=== PATIENT | male | born 1975 | race Caucasian/White ===

== ENCOUNTER 2019-05-03 08:21 | Inpatient (IN) ==
[2019-05-03] MEDS ORDERED: ASPIRIN PO ONE (08:37)
[2019-05-03 08:57] LABS: BASO# 0.07 X1000 (0.0-0.2); BASO% 0.8 % (0.0-0.8); EOS# 0.53 X1000 (0.0-0.7); EOS% 5.8 % (0.0-10.0); HEMATOCRIT 27.4 % (42.0-52.0); IMM GRAN# 0.02 X1000 (0.0-0.04); IMM GRAN% 0.2 % (0.0-0.5); LYMPH# 2.34 X1000 (1.2-3.4); LYMPH% 25.7 % (20.5-51.1); MCH 21.4 PG (27-31); MCHC 29.2 g/dL (33-37); MCV 73.5 FL (81-99); MONO% 13.2 % (1.7-9.3); MPV 9.2 FL (7.4-10.4); NEUT# 4.95 X1000 (1.4-6.5); NEUT% 54.3 % (42.2-75.2); PLT 594 X1000 (130-400); RBC 3.73 XMIL (4.7-6.1); RDW 23.3 % (11.5-14.5); WBC 9.11 X1000 (4.8-10.8)
[2019-05-03 09:03] LABS: INR 1.03
[2019-05-03 09:04] LABS: PTT 33.6 Seconds (22.3-41.8)
[2019-05-03 09:11] LABS: POTASSIUM 4.2 mmol/L (3.5-5.1)
[2019-05-03 09:12] LABS: ALBUMIN 3.3 g/dL (3.5-5.0); CALCIUM 8.2 mg/dL (8.8-10.2); CREATININE 10.8 mg/dL (0.7-1.2); TOTAL BILIRUBIN 0.4 mg/dL (0.20-1.00); TOTAL PROTEIN 6.7 g/dL (6.3-8.3)
[2019-05-03] MEDS ORDERED: DEMEROL IV ONE (10:00)
--- NOTE | 2019-05-03 10:04 | Diag Imaging Result Doc PS360 ---
EXAM: ABDOMEN FLAT/UPRIGHT INDICATION: epigastric pain/post colostomy reversal 2 wks ago TECHNIQUE: 3 views COMPARISON: 10/29/2012 FINDINGS: Multiple metallic clips project over the right lower quadrant and there is chronic soft tissue calcification at the right lower quadrant that is stable. There is nonspecific patchy bowel gas throughout the abdomen. There is no significant distention and there is nothing that would necessarily indicate bowel obstruction. There is a relatively small amount of stool in the colon. There is no evidence of large volume free abdominal gas. IMPRESSION: Nonspecific abdomen as described above. Electronically signed by Domingo Mariscal 05/03/2019 10:01 AM
--- NOTE | 2019-05-03 10:06 | Diag Imaging Result Doc PS360 ---
EXAM: CHEST-2 VIEWS INDICATION: cp TECHNIQUE: 2 views COMPARISON: 04/23/2018 FINDINGS: There has been interval removal of the right Vas-Cath. Inspiration is suboptimal. There is likely minimal atelectasis at the left lung base. The lungs are grossly clear by plain radiograph, otherwise. There is no evidence of significant pleural fluid collection or pneumothorax. The cardiac silhouette appears somewhat prominent but stable. IMPRESSION: Low lung volumes and suggestion of minimal left basilar atelectasis. No definite acute pathology by plain radiograph, otherwise. Electronically signed by Domingo Mariscal 05/03/2019 10:03 AM
--- NOTE | 2019-05-03 11:45 | EKG Report ---
Test Performed on : 05/03/2019 11:03:55 AM Test Reason : repeat Blood Pressure : / mmHG Vent. Rate : 092 BPM Atrial Rate : 092 BPM P-R Int : 148 ms QRS Dur : 092 ms QT Int : 376 ms P-R-T Axes : 046 027 020 degrees QTc Int : 464 ms Normal sinus rhythm. Possible Left atrial enlargement Borderline ECG When compared with ECG of 03-MAY-2019 08:28, (Unconfirmed) No significant change was found Unconfirmed Result
--- NOTE | 2019-05-03 11:47 | EKG Report ---
Test Performed on : 05/03/2019 08:28:40 AM Test Reason : cp Blood Pressure : / mmHG Vent. Rate : 084 BPM Atrial Rate : 084 BPM P-R Int : 146 ms QRS Dur : 090 ms QT Int : 382 ms P-R-T Axes : 058 040 041 degrees QTc Int : 451 ms Normal sinus rhythm. Normal ECG When compared with ECG of 25-AUG-2018 11:10, No significant change was found Unconfirmed Result
--- NOTE | 2019-05-03 12:48 | PROVIDER DOCUMENTATION ---
HPI-Chest Pain - General Chief Complaint: Shortness of Breath Stated Complaint: CHEST PAIN Time Seen by Provider: 05/03/19 08:54 Source: patient, family Allergies/Adverse Reactions: Patient Allergies Allergy/AdvReac Type Severity Reaction Status Date / Time lisinopril [From Prinivil] Allergy Severe extreme Verified 05/03/19 09:00 decrease in BP erythromycin base Allergy Unknown Unknown Verified 05/03/19 09:00 [Erythromycin Base] iron Allergy Unknown Unknown Verified 05/03/19 09:00 Home Medications: Home Medication List Medication Instructions Recorded Confirmed Last Taken Type Prednisone 5 mg PO DAILY 10/29/12 05/03/19 10/30/18 04:00 History ATORVAstatin [Lipitor] 10 mg PO QHS 04/08/18 05/03/19 10/29/18 21:00 History Apixaban [Eliquis] 2.5 mg PO BID 04/08/18 05/03/19 10/28/18 History Calcium Acetate 2 cap PO TID 08/25/18 05/03/19 10/30/18 04:00 History Folic Acid/Vit B Complex and C 1 each PO DAILY 08/25/18 05/03/19 10/30/18 04:00 History [Dialyvite Tablet] Ondansetron HCl [Zofran] 2 tab PO PRN PRN 10/28/18 05/03/19 10/30/18 04:00 History Sertraline [Zoloft] 100 mg PO DAILY 10/28/18 05/03/19 10/29/18 21:00 History Hydrocodone/Acetaminophen [Jenera 1 ea PO Q6H PRN PRN #10 tab 10/30/18 05/03/19 Unknown Rx 7.5-325 Tablet] Oxycodone HCl/Acetaminophen 1 tab PO Q6H PRN 05/03/19 05/03/19 Unknown History [Oxycodone-Acetaminophen 5-325] Propranolol HCl 10 mg PO BID 05/03/19 05/03/19 Unknown History Ropinirole HCl [Requip] 0.5 mg PO HS 05/03/19 05/03/19 Unknown History - History of Present Illness-CP Nature of Presenting Problem: began having chest pain and sob with hx of dvt 3 yrs ago on eliquis 2.5 bid esrd dialysis pt recent colostomy was reduced Location: reports: substernal, epigastric Chest Pain Radiation: reports: arms Quality of Pain: reports: fullness, pressure Severity in ED: moderate Onset/Duration: abrupt, just prior to arrival Timing: still present, getting worse Context/Activities at Onset: reports: none Modifying Factors: improves with: nothing Associated Symptoms: reports: diaphoresis, dizziness, nausea, shortness of breath, weakness Similar Symptoms Previously?: No Recently Seen Here or By Another Healthcare Provider: No Review of Systems - Adult - REVIEW OF SYSTEMS - ADULT Constitutional: reports: no symptoms reported Eyes: reports: no symptoms reported Ears, Nose, Mouth & Throat: reports: no symptoms reported Cardiovascular: reports: chest pain Respiratory: reports: shortness of breath Gastrointestinal: reports: abdominal pain Genitourinary: reports: other Musculoskeletal: reports: no symptoms reported Integumentary: reports: no symptoms reported Neurological: reports: no symptoms reported Psychiatric: reports: no symptoms reported Endocrine: reports: no symptoms reported Hematologic/Lymphatic: reports: no symptoms reported Allergic/Immunologic: reports: no symptoms reported Past History - Adult - PAST MEDICAL HISTORY-ADULT Review of Records: reports: Nursing Assessment Review, Medications Reviewed, Social history reviewed & non-contributory. Major Childhood Illnesses: reports: denies history Cardiovascular: denies: arrhythmia, CAD, CHF, palpitations, pericardial disease Respiratory: reports: denies history Gastrointestinal: reports: other (colostomy reduced) Genitourinary: reports: ESRD, kidney disease Musculoskeletal: reports: denies history Neurological: reports: denies history Psychiatric: reports: denies history Physical Exam-General - PHYSICAL EXAM-ADULT Initial Vital Signs Reviewed: Yes - CONSTITUTIONAL General Appearance: moderate distress - EYES Eyes: PERRL/EOMI, pink conjunctivae - HEAD, EARS, NOSE, MOUTH & THROAT HENMT: normocephalic/atraumatic, moist mucous membranes - NECK Neck: full range of motion, supple - RESPIRATORY Respiratory: lungs clear, normal breath sounds - CARDIOVASCULAR Cardiovascular: regular rate, rhythm - GASTROINTESTINAL (ABDOMEN) Abdominal Exam: normal bowel sounds, soft, guarding - LYMPHATIC Lymphatic: no adenopathy - MUSCULOSKELETAL Back Exam: normal inspection, no CVA tenderness Extremity: normal range of motion, non-tender - SKIN Integumentary: diaphoresis, rash - NEUROLOGIC Neurologic: grossly normal - PSYCHIATRIC Psych/Mental Status: oriented x 3 Progress - PLAN OF CARE/RESULTS Progress/Plan/Lab Results: Vital Signs - 8 hr 05/03/19 08:29 05/03/19 08:30 05/03/19 10:10 Temperature 98 F 97.9 F Pulse Rate 77 89 Respiratory Rate 22 17 Blood Pressure 177/98 168/91 O2 Sat by Pulse Oximetry 100 100 100 Laboratory Results - last 24 hr 05/03/19 05/03/19 05/03/19 08:35 08:35 08:35 WBC 9.11 RBC 3.73 L Hgb 8.0 L Hct 27.4 L MCV 73.5 L MCH 21.4 L MCHC 29.2 L RDW Std Deviation 23.3 H Plt Count 594 H MPV 9.2 Immature Gran % (Auto) 0.2 Neut % (Auto) 54.3 Lymph % (Auto) 25.7 [place] % (Auto) 13.2 H Eos % (Auto) 5.8 Baso % (Auto) 0.8 Immature Gran # (Auto) 0.02 Neut # (Auto) 4.95 Lymph # (Auto) 2.34 [place] # (Auto) 1.20 H Eos # (Auto) 0.53 Baso # (Auto) 0.07 PT INR PTT (Actin FS) D-Dimer, Quantitative 3.40 H Sodium Potassium Chloride Carbon Dioxide Anion Gap BUN Creatinine Estimated GFR/1.73 m2 BUN/Creatinine Ratio Glucose Calculated Osmolality Calcium Total Bilirubin AST ALT Alkaline Phosphatase Creatine Kinase Troponin T Lod-G-Wiotsvxvrwf Pept Total Protein Albumin Globulin Albumin/Globulin Ratio Amylase 496 H Lipase 05/03/19 05/03/19 05/03/19 08:35 08:35 08:35 WBC RBC Hgb Hct MCV MCH MCHC RDW Std Deviation Plt Count MPV Immature Gran % (Auto) Neut % (Auto) Lymph % (Auto) [place] % (Auto) Eos % (Auto) Baso % (Auto) Immature Gran # (Auto) Neut # (Auto) Lymph # (Auto) [place] # (Auto) Eos # (Auto) Baso # (Auto) PT 14.0 INR 1.03 PTT (Actin FS) 33.6 D-Dimer, Quantitative Sodium 138 Potassium 4.2 Chloride 96 L Carbon Dioxide 24 L Anion Gap 18 BUN 44 H Creatinine 10.8 H* Estimated GFR/1.73 m2 5 BUN/Creatinine Ratio 4 Glucose 120 H Calculated Osmolality 288 Calcium 8.2 L Total Bilirubin 0.40 AST 50 H ALT 15 Alkaline Phosphatase 241 H Creatine Kinase 30 Troponin T Vxs-P-C[place]uiermkut Pept 8244 H Total Protein 6.7 Albumin 3.3 L Globulin 3.0 Albumin/Globulin Ratio 1.0 Amylase Lipase 1879 H 05/03/19 05/03/19 05/03/19 08:35 11:00 11:00 WBC RBC Hgb Hct MCV MCH MCHC RDW Std Deviation Plt Count MPV Immature Gran % (Auto) Neut % (Auto) Lymph % (Auto) [place] % (Auto) Eos % (Auto) Baso % (Auto) Immature Gran # (Auto) Neut # (Auto) Lymph # (Auto) [place] # (Auto) Eos # (Auto) Baso # (Auto) PT INR PTT (Actin FS) D-Dimer, Quantitative Sodium Potassium Chloride Carbon Dioxide Anion Gap BUN Creatinine Estimated GFR/1.73 m2 BUN/Creatinine Ratio Glucose Calculated Osmolality Calcium Total Bilirubin AST ALT Alkaline Phosphatase Creatine Kinase 24 Troponin T 0.023 0.026 Ibc-Y-Aojfzeluqwh Pept Total Protein Albumin Globulin Albumin/Globulin Ratio Amylase Lipase Orders Category Date Time Status Cardiac Monitoring DIRECTED Care 05/03/19 08:38 Active Oxygen Therapy- ED Nursing DIRECTED Care 05/03/19 08:38 Active Saline Loc NOW Care 05/03/19 08:38 Active ABDOMEN FLAT/UPRIGHT [RAD] Stat Exams 05/03/19 08:38 Completed CHEST-2 VIEWS [RAD] Stat Exams 05/03/19 08:[address] ANGIOGRM PULMONARY ARTERIES [CT] Stat Exams 05/03/19 11:15 Taken AMYLASE [CHEM] Stat Lab 05/03/19 08:35 Completed CBC WITH ELECTRONIC DIFF [HEME] Stat Lab 05/03/19 08:35 Completed CK PROFILE [SP CHEM] Stat Lab 05/03/19 08:35 Completed CK PROFILE [SP CHEM] Stat Lab 05/03/19 11:00 Completed COMPREHENSIVE METABOLIC PANEL [CHEM] Stat Lab 05/03/19 08:35 Completed D-DIMER [COAG] Stat Lab 05/03/19 08:35 Completed LIPASE [CHEM] Stat Lab 05/03/19 08:35 Completed PRO B-NATRIURETIC PEPTIDE Stat Lab 05/03/19 08:35 Completed PROTIME WITH INR [COAG] Stat Lab 05/03/19 08:35 Completed PTT [COAG] Stat Lab 05/03/19 08:35 Completed TROPONIN T Stat Lab 05/03/19 08:35 Completed TROPONIN T Stat Lab 05/03/19 11:00 Completed Aspirin Med 05/03/19 08:37 Discontinued 325 mg PO NOW ONE Meperidine [Demerol] Med 05/03/19 10:00 Discontinued 25 mg IV NOW ONE CP/SOB/Palp >45 yrs of Age Stat Oth 05/03/19 08:37 Ordered EKG [EKG] Stat Ther 05/03/19 08:38 Draft EKG [EKG] Stat Ther 05/03/19 10:49 Draft Transfer/Admit Order [TRANSFER] Routine Transfer 05/03/19 11:12 Ordered Result Diagrams: 05/03/19 08:35 05/03/19 08:35 - EKG 1 Time of EKG reading by physician:: 08:20 EKG Read and Signed by:: Wilmar Saldana EKG Interpretation (*Must complete 3 of following elements*): Normal Rate: 84 Rhythm: sinus [place]: normal NM Interval: normal ST Wave: normal 2 Time of EKG reading by physician:: 11:00 EKG Read and Signed by:: Wilmar Saldana EKG Interpretation (*Must complete 3 of following elements*): Normal Rate: 92 Rhythm: sinus [place]: normal QRS: normal NM Interval: normal ST Wave: normal Prior EKG Comparison: unchanged from prior - XRAY 1 XRAY Study: Chest Impression: Normal 2 XRAY Study: Abdomen Impression: Normal Departure - Departure Date of Disposition Decision: 05/03/19 DIAGNOSIS: Pancreatitis, Perforated diverticulum Referrals and Follow-Ups: Edmundo Tomlin MD [Primary Care Provider] -
--- NOTE | 2019-05-03 13:11 | Diag Imaging Result Doc PS360 ---
EXAM: CT ANGIOGRM PULMONARY ARTERIES INDICATION: sob chest pain TECHNIQUE: This exam was performed using automated exposure control, adjustment of mA or kV according to patient size, and/or use of iterative reconstruction technique. Thin section axial images and 3-D MIPS were obtained. COMPARISON: 10/23/2017 FINDINGS: There is no evidence of pulmonary embolism. 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 There is no evidence of thoracic aortic aneurysm or dissection. There is no cardiomegaly. There is no evidence of significant mediastinal or hilar lymphadenopathy. There is a small left pleural effusion and there is moderate atelectasis at the left lung base. There is minimal right basilar atelectasis. The lungs are grossly clear, otherwise. There is no pneumothorax. There is a large amount of heterogeneous material in the gallbladder lumen that probably represents sludge. No pericholecystic inflammatory changes are identified. There is a trace amount of fluid around the spleen and liver and tracking into the left paracolic gutter. Note that it is less ascites than on the previous study from 2018. IMPRESSION: 1.Small left pleural effusion with moderate atelectasis at the left lung base and minimal right basilar atelectasis. 2.Large amount of what appears to be heterogeneous sludge in the gallbladder lumen. 3.Trace ascites around the liver and spleen as well as in the left paracolic gutter. 4.No evidence of pulmonary embolism. 5.Other incidental/nonacute findings detailed above. Electronically signed by Domingo Mariscal 05/03/2019 1:08 PM
--- NOTE | 2019-05-03 14:28 | HISTORY AND PHYSICAL ---
PRIMARY CARE PHYSICIAN: Dr. Tomlin. CHIEF COMPLAINT: Chest pain that was substernal, shortness of breath and nausea that began this morning and progressively worsened. HISTORY OF PRESENTING ILLNESS: This is a 43-year-old male who presents to [facility] ER with complaints of substernal chest pain and shortness of breath. States the chest pain was constant with nausea. He is also noted to be an end-stage renal disease patient who has dialysis on Saturday, Saturday, Saturday. He, two weeks ago, had a colostomy reversal done, and he is also noted to be a renal transplant x3 patient. His workup showed a hemoglobin and hematocrit of 8 and 27.4. D-dimer of 3.40. His BUN was 44, with a creatinine of 10.8. He does state his last dialysis was this past Saturday. His cardiac enzymes x2 sets have been negative. ProBNP is 8244, which appears to be around his baseline. On 04/09/2018, it was 8450. His amylase was 496, with a lipase of 1879. Abdomen x-ray showed a nonspecific abdomen. Chest x-ray showed no definite acute pathology by plain radiograph. Did have some minimal left basilar atelectasis. We did do a pulmonary arteriogram that showed a small left pleural effusion, moderate atelectasis in the left lung base, and minimal right basilar atelectasis, a large amount of what appeared to be heterogeneous sludge in the gallbladder lumen, trace ascites around the liver and spleen, no evidence of PE, so he will be admitted to the [facility] for further evaluation and treatment. PAST MEDICAL HISTORY: End-stage renal disease with dialysis on Saturday, Saturday, Saturday, immunosuppression, a right lower extremity DVT, chronic bilateral lower extremity edema, and hypertension. PAST SURGICAL HISTORY: Renal transplant x3, left inguinal and umbilical hernia, bilateral hip replacement, a colostomy placement, and most recently, 2 weeks ago, a colostomy reversal, and has had a testicle removed. FAMILY HISTORY: Reviewed and noncontributory. SOCIAL HISTORY: Currently lives with family. Denies any tobacco, alcohol, or illicit drug use. ALLERGIES: Lisinopril, erythromycin, and iron. HOME MEDICATIONS: Will obtain a current list and restart as appropriate. IMAGING AND LABORATORY DATA: Laboratory data showed a white blood cell count of 9.11, hemoglobin 8, hematocrit 27.4, platelets 594,000. PT and INR of 14 and 1.03, with a D-dimer of 3.40. Sodium of 138, potassium 4.2, chloride 96, CO2 of 24, BUN of 44, creatinine 10.8, glucose 120. Cardiac enzymes x2 sets were negative. ProBNP of 8244. Amylase 496, lipase 1879. Abdomen x-ray showed a nonspecific abdomen. Chest x-ray showed low lung volumes and suggestion of minimal left basilar atelectasis, but no definite acute pathology by plain radiograph otherwise. EKG showed normal sinus rhythm at 84. We did a pulmonary arteriogram that showed a small left pleural effusion with moderate atelectasis at the left lung base, and minimal right basilar atelectasis, a large amount of what appeared to be heterogenous sludge in the gallbladder lumen, trace ascites around the liver and spleen as well as in the left paracolic gutter, and no evidence of a PE. REVIEW OF SYSTEMS: He denied any fever, chills, blurred vision, dizziness. He was positive for chest pain, some shortness of breath. Denied any cough. Was positive for nausea. No abdominal pain was noted. Denied any constipation, diarrhea, or burning or hurting with urination. PHYSICAL EXAMINATION: VITAL SIGNS: On arrival, he had a temperature of 98 degrees, pulse 77, respirations 22, blood pressure 177/98, saturating 100% on room air. GENERAL: This is a 43-year-old male who is lying in the bed, appears pale in color, but answers questions appropriately. HEENT: Normocephalic, atraumatic. Normal ENT inspection. Oropharynx and nares are clear. Eyes: Pupils are equal, round, reactive to light and accommodation. Extraocular movements are intact. NECK: Normal inspection. Normal range of motion. LUNGS: Clear to auscultation bilaterally with equal lung expansion and chest wall movement. HEART: Regular rate and rhythm. No murmurs, rubs, or gallops. ABDOMEN: Soft, nontender, nondistended. Bowel sounds are present x4 quadrants. MUSCULOSKELETAL: He has 5/5 strength x4 extremities. NEUROLOGICAL: Cranial nerves II through XII appear grossly intact. ASSESSMENT: 1. Chest pain. 2. Acute pancreatitis. 3. Elevated D-dimer. Ruled out for pulmonary embolism. 4. End-stage renal disease with hemodialysis on Saturday, Saturday, Saturday. PLAN: He will be transferred to the [facility], placed on telemetry, held n.p.o. Will consult Nephrology. Will consult Cardiology. Will complete his serial cardiac enzymes. Continue home medications as previously identified. O2 per protocol. Recheck a CBC, BMP in the a.m., and further orders after seen by attending and by consultants. Dictated by FRAN Melendez for Adam Serrano MD cc: FRAN Melendez MD Akram Haggag, MD
[2019-05-03] MEDS: DILAUDID IV PRN ×4 (14:40→23:20)
--- NOTE | 2019-05-03 14:58 | HISTORY AND PHYSICAL ---
ADDENDUM: The patient came in with chest pain, diaphoresis, shortness of breath. He is a dialysis patient. He has had a recent colostomy reversal. In any case, his pain is in his chest, but it is also in his epigastrium. He has tenderness apparent. He has evidence of pancreatitis based on his study, based on his amylase and lipase levels. He also has gallstones or at least biliary sludge, so I believe this is actually biliary. This may be gallstone pancreatitis. His EKG did not clearly show any ischemic changes. His troponins are negative. Plan will be to admit him, gentle hydration, n.p.o., surgical consultation, and follow. His EKG looks normal. We will get surgical opinion, and of course Dr. Verdugo to manage his dialysis. He did get CT contrast to rule out PE because he had an elevated D-dimer. Between his renal failure and recent surgery, that is not surprising. We will complete VTE workup with venous Dopplers, and monitor, but I really do think this is just pancreatitis due to gallstone pancreatitis. cc: Adam Serrano MD
[2019-05-03] MEDS ORDERED: DILAUDID IV ONE (17:12)
[2019-05-03] MEDS ORDERED: NS 1,000 ML IV ONE (17:39)
[2019-05-03] MEDS: ZOFRAN IV PRN ×2 (18:14→22:23)
[2019-05-03] MEDS: PHOSLO PO SCH (18:36)
[2019-05-03] MEDS: SODIUM CHLORIDE 0.9% INJ SCH (18:49)
[2019-05-03] MEDS: PROTONIX IV SCH (18:49)
--- NOTE | 2019-05-03 20:07 | GENERAL SURGERY CONSULTATION ---
DATE: 05/03/2019 HISTORY: This is a 43-year-old white male who presented to the emergency department with substernal chest pain, shortness of breath and nausea and bloatedness. He was found to have a high amylase and lipase and he has epigastric discomfort as well. Pulmonary angiogram did not show any pulmonary emboli. Based on what I could see there appeared to be some biliary sludge. PAST MEDICAL HISTORY: 1. End-stage renal disease. He thinks he has had multiple attempts a kidney transplant. 2. He has had a history of a right lower extremity deep venous thrombosis. 3. Hypertension. 4. He has had a previous colostomy by Dr. Ordoñez and recently that was reversed apparently done in [place] by Dr. Irizarry. His bowels have been moving. 5. He has also had an orchiectomy. SOCIAL HISTORY: He lives with his family. He is . Denies tobacco alcohol or illicit drug use. FAMILY HISTORY: Negative for significant heart disease. HOME MEDICATIONS: Include prednisone, Eliquis, Lipitor, vitamins, calcium acetate, Zofran, Zoloft, D[place], propranolol. Requip, oxycodone. ALLERGIES: Lisinopril, erythromycin, iron. REVIEW OF SYSTEMS: Negative in every subsystem, except that noted above. PHYSICAL EXAMINATION: Vital Signs: He is afebrile. Heart rate 75, blood pressure 153/90. He is somewhat somnolent, but does arouse. No cervical adenopathy. Bilateral breath sounds. Heart: Regular rate and rhythm. Abdomen: Soft, but tender especially in the epigastrium. He has a midline wound that is healing. He has left lower quadrant colostomy wound that is healing. Extremities: No peripheral edema. Neurologic: He is somnolent but does answer questions appropriately. Laboratory Data: White count is 9000, hemoglobin 8, hematocrit 27, creatinine 10.8 amylase 496, lipase 1879, alkaline phosphatase 241, total bilirubin 0.4. ASSESSMENT: Possible gallstone pancreatitis. I do agree with ultrasound of the gallbladder to further evaluate it. We will recheck his labs tomorrow. cc: Ney Matute MD
[2019-05-03] MEDS: INDERAL PO SCH (20:16)
[2019-05-03] MEDS: REQUIP PO SCH (20:17)
[2019-05-03] MEDS ORDERED: LIPITOR PO SCH (21:00)
[2019-05-04] MEDS: ZOFRAN IV PRN ×4 (02:04→20:20)
[2019-05-04] MEDS: DILAUDID IV PRN ×5 (02:04→20:20)
[2019-05-04] MEDS ORDERED: NS 2,000 ML MISC PRN (06:15)
[2019-05-04] MEDS ORDERED: TIGHT: 0.2 ML/HR FOR DIALYSIS MISC PRN (06:15)
[2019-05-04] MEDS ORDERED: HEPARIN IV PRN (06:15)
--- NOTE | 2019-05-04 07:52 | Diag Imaging Result Doc PS360 ---
EXAM: US GB < RUQ (LIMITED) HISTORY: elevated liver enzymes TECHNIQUE: Right upper quadrant ultrasound COMPARISON: 02/17/2014 FINDINGS: Normal inferior vena cava. The gallbladder is filled with debris. No definite wall thickening. Normal right kidney. No hydronephrosis. No ascites in the right upper quadrant. The common bile duct measures 5 mm. No focal hepatic normality. No focal pancreatic abnormality although it is heterogeneous and partly obscured. IMPRESSION: Stones and sludge filled gallbladder. Electronically signed by Alvin Sewell 05/04/2019 7:50 AM
[2019-05-04 08:14] LABS: BASO# 0.05 X1000 (0.0-0.2); BASO% 0.3 % (0.0-0.8); EOS# 0.33 X1000 (0.0-0.7); EOS% 1.9 % (0.0-10.0); HEMATOCRIT 28.8 % (42.0-52.0); HEMOGLOBIN 8.4 g/dL (14.0-18.0); IMM GRAN# 0.04 X1000 (0.0-0.04); IMM GRAN% 0.2 % (0.0-0.5); LYMPH# 1.36 X1000 (1.2-3.4); LYMPH% 7.8 % (20.5-51.1); MCH 21.4 PG (27-31); MCHC 29.2 g/dL (33-37); MCV 73.5 FL (81-99); MONO# 1.72 X1000 (0.11-0.59); MONO% 9.8 % (1.7-9.3); MPV 9.7 FL (7.4-10.4); NEUT# 14.04 X1000 (1.4-6.5); PLT 537 X1000 (130-400); RBC 3.92 XMIL (4.7-6.1); RDW 23.4 % (11.5-14.5); WBC 17.54 X1000 (4.8-10.8)
[2019-05-04] MEDS: PHOSLO PO SCH ×3 (08:29→17:14)
[2019-05-04] MEDS: ZOLOFT PO SCH (08:30)
[2019-05-04] MEDS: HEPARIN SUBQ SCH ×2 (08:30→20:06)
[2019-05-04] MEDS: NEPHROCAPS PO SCH (08:30)
[2019-05-04] MEDS: INDERAL PO SCH ×2 (08:30→20:05)
[2019-05-04 08:35] LABS: AMYLASE 1008 U/L (20-200)
[2019-05-04 08:35] LABS: ALB/GLOB RATIO 0.9; CALCIUM 7.8 mg/dL (8.8-10.2); POTASSIUM 4.9 mmol/L (3.5-5.1); TOTAL BILIRUBIN 2.63 mg/dL (0.20-1.00); TOTAL PROTEIN 6.5 g/dL (6.3-8.3)
[2019-05-04 08:37] LABS: CREATININE 11.2 mg/dL (0.7-1.2)
[2019-05-04 08:38] LABS: LIPASE 1613 U/L (13-60)
--- NOTE | 2019-05-04 11:43 | PROGRESS NOTE ---
DATE: 05/04/2019 SUBJECTIVE: This patient is still complaining of abdominal pain, especially at the level of the epigastric, and a little bit right upper quadrant. No signs of peritoneal irritation. He has multiple scars due to previous surgery, and he has had a previous colostomy that was reversed recently, a couple of weeks ago. Abdomen ultrasound showed a gallbladder that is filled with stones and sludge. Surgery Department on board. I will wait for recommendations. Amylase and lipase are elevated, as well as the LFTs, which are worse compared with yesterday. OBJECTIVE: Vital Signs: Temperature 98.8 degrees, pulse 94, respiratory rate 26, blood pressure 102/72, oxygen saturation 98 on room air. HEENT: Head normocephalic. No trauma. PERRLA. Neck: Supple. No JVD. No masses. Central trachea. Chest: Clear to auscultation. Some crepitus at the bases. Abdomen: Soft. It is tender to palpation at the level of the epigastric area and right upper quadrant. Mild soreness, which is generalized. Positive bowel sounds. Multiple scars. No signs of infection on those new scars. Extremities: No clubbing, no cyanosis. Neurological: The patient is alert. He is oriented x3. No focal deficits. LABORATORY DATA: WBC 17.5, hemoglobin 8.4, hematocrit 28.8, platelets 537,000. Sodium 138, potassium 4.9, chloride 99, bicarbonate 20, BUN 59, creatinine 11.2, glucose 97, calcium 7.8. AST 409, ALT 259, alkaline phosphatase 775. Amylase 1008, lipase 1613. ASSESSMENT AND PLAN: 1. Likely gallstone pancreatitis. Ultrasound showed stones and sludge-filled gallbladder. Surgery Department on board. We cannot be aggressive with intravenous fluids because this patient is end-stage renal disease, and actually he is scheduled to get dialysis today. Gastroenterology Department and Surgery Department on board. Continue with pain medication. Since his white blood cell count increased, I will go ahead and put this patient on antibiotics. 2. End-stage renal disease, on hemodialysis Saturday, Saturday, and Saturday. 3. Chest pain. I do not think this is a cardiac-related chest pain, probably is due to the pancreatitis and gallbladder related. Troponins were negative x3 with no electrocardiogram changes. 4. Hypertension. Actually, this patient's blood pressure has been stable. We will just monitor. 5. Elevated D-dimer, negative for pulmonary embolism. Pending lower extremity ultrasound. 6. History of a lower extremity deep venous thrombosis. He has been on Eliquis, which has been stopped due to his current condition. Probably, this patient will go to the operating room. 7. Dyslipidemia. I will stop the atorvastatin due to his increase of liver function tests. 8. Elevated liver function tests. As per #1. cc: Sawyer Dallas MD
--- NOTE | 2019-05-04 16:11 | NEPHROLOGY CONSULTATION ---
DATE: 05/04/2019 REASON FOR ADMISSION: Chest pain substernal with increased work of breathing and associated with nausea nonradiating . REASON FOR CONSULT: To assist with evaluation and treatment. CONSULTING PHYSICIAN: Dr. Maggie Gallego, CHRIS. HISTORY OF PRESENT ILLNESS: Mr. Hdz is a 43-year-old white male who is known to our outpatient services for hemodialysis on Saturday, Saturday, Saturday at the [facility]. Patient is a renal transplant patient with failure secondary to small bowel obstruction approximately 1 year ago. The patient has recently undergone a reverse anastomosis for a colostomy and was recently seen by Dr. Irizarry at [facility] with a drain removal this past Saturday. states that on Saturday he did go to his regular dialysis clinic appointment. He tolerated that well, woke up yesterday morning with severe chest pain worsening over several hours, increased work of breathing. He was brought to the emergency room. EKG was nonspecific. He had an elevated D-dimer which was actually to be expected secondary to having recent surgeries. Cardiac enzymes x2 were negative. His proBNP was 8244 which is close to his baseline. Labs in the emergency room indicated an amylase of 496 with a lipase of 1879. The patient had a CT of the chest with contrast for CT angiogram showing small left pleural effusions, moderate atelectasis to the left lung base, minimal right basilar atelectasis, large amount of heterogenous sludge in the gallbladder lumen, trace ascites around the liver and spleen left pericolic gutter. No evidence of pulmonary embolism, nonacute findings. Followup abdominal ultrasound this a.m. indicate stones and sludge filled gallbladder, is felt upon his admission that patient had acute pancreatitis secondary to cholecystitis. There is a surgical consult for Dr. Matute on the chart. Patient currently states that his chest pain has resolved. There is residual tenderness nonradiating. No nausea or vomiting. No increased swelling. States that he thought he had some fever and chills last week according to his that lasted approximately 1 day. The patient was secondarily admitted to [facility] for further workup and evaluation. His amylase is down to 1008. His lipase is down to 1613 with IV fluids, gentle hydration. PAST MEDICAL HISTORY: Previous renal transplant, he is on immunosuppression therapy secondary to transplant failure, he is on end-stage renal disease with dialysis on Saturday, Saturday, Saturday at the [facility], he has had a right lower extremity DVT, chronic bilateral lower extremity edema, hypertension, anemia of chronic disease and osteodystrophy of chronic disease, previous small bowel obstruction with surgery. PAST SURGICAL HISTORY: Renal transplant x3, left inguinal and umbilical hernia, bilateral hip replacement, colostomy placement with a recent resection and reversal 2 weeks ago, he has had a testicle removed. Currently has dialysis tunneled catheter with a fistula to the left upper arm. FAMILY HISTORY: Negative for kidney disease. SOCIAL HISTORY: Lives with family, has who is attentive to his care. Denies tobacco, alcohol or illicit drug use. ALLERGIES: Listed as lisinopril, erythromycin, iron and meperidine. HOME MEDICATIONS: Prednisone 10 mg, Eliquis, Lipitor, Dialyvite, calcium acetate, Zofran, Zoloft, Horton, propranolol, Requip, oxycodone. REVIEW OF SYSTEMS: Times 10 with pertinent positives listed above in the HPI. His most recent vital signs temperature 99.2 degrees, blood pressure 112/75, heart rate 92, respirations 20, he is on 2 L nasal cannula, last recorded saturation 93%, he has had 700 in, he has had 0 recorded out with need for dialysis. LABS: Sodium 138, potassium 4.9, chloride 99, CO2 20, BUN 59, creatinine 11.2, glucose of 97, anion gap of 19, calcium 7.8, albumin is 3. White count 17.54, hemoglobin 8.4, hematocrit 28.8 with a platelet count of 537,000. Repeat amylase 1008, lipase 1613, his AST is 409, ALT 259 with an alkaline phosphatase of 775. PHYSICAL EXAM: This is a 43-year-old white male he is resting quietly in bed. He appears chronically ill, no acute distress. His skin is warm and dry.HEENT: Normocephalic, atraumatic. Conjunctiva is pale. He has MAGI. Mucous membranes are dry. Neck: Supple, trachea midline. No evidence of JVD. Patient is in the upright position. Cardiovascular: Regular rate and rhythm. No murmur or gallop appreciated. Lungs: Clear to auscultation bilaterally. Equal excursion. He is currently on O2. Abdomen: Slightly distended. Multiple scars. Slight tenderness to midline palpation. Genitourinary: Not inspected, minimal void with dialysis assist. Extremities: Have no edema, no clubbing or cyanosis. Fistula noted to the left upper arm. Neurological: Alert and oriented x3. ASSESSMENT AND PLAN: 1. Chronic kidney disease stage 5D. Patient is due for his routine dialysis treatment today. We will place him on a 2K bath. He is to dialyze for 3-1/2 hours. We will attempt to pull him to his outpatient dry weight. 2. Electrolytes and acid-base balance with correction on dialysis. 3. Anemia, this remains low but stable. 4. Acute pancreatitis secondary to cholecystitis. Primary team has consulted Dr. Matute for further monitoring, evaluation. 5. Chest pain secondary to acute pancreatitis and cholecystitis followed by the primary care. Patient is small allergy to meperidine, now to resume Horton to be followed by the primary care. Like to thank you for allowing us to follow with this patient. Dictated by FRAN Workman for Ray Verdugo MD Face to face encounter, data reviewed, discussed with Herbert Bowen on 05/05/19. I agree with the above assessment and plan of care. cc: FRAN Workman MD [facility]
[2019-05-04] MEDS: PROTONIX IV SCH (18:08)
[2019-05-04] MEDS: REQUIP PO SCH (20:05)
--- NOTE | 2019-05-04 22:55 | GENERAL SURGERY PROGRESS NOTE ---
DATE: 05/04/2019 He says he feels a little bit better. He is afebrile. Heart rate is 94, blood pressure 102/72. Looks like he was -700 in his intake and output. White count has come up to 17,500. Total bilirubin is up to 2.6, AST up to 409, ALT up to 259, alkaline phosphatase up to 775. Amylase up to a 1008. Lipase is down to 1613. His ultrasound did show biliary sludge. His common duct is not dilated. ASSESSMENT: Probable gallstone pancreatitis. He probably will come to laparoscopic cholecystectomy, but first his pancreas needs to respond and improve. He will certainly third space and require some IV fluids. I will allow him to have liquids by mouth for now. We will recheck his labs tomorrow. I agree with the antibiotic coverage. cc: Ney Matute MD [facility]
[2019-05-05] MEDS: DILAUDID IV PRN ×5 (04:54→23:38)
[2019-05-05] MEDS: ZOFRAN IV PRN ×5 (04:54→23:38)
[2019-05-05 06:25] LABS: ALB/GLOB RATIO 0.7; ALBUMIN 2.5 g/dL (3.5-5.0); CALCIUM 7.8 mg/dL (8.8-10.2); POTASSIUM 4.2 mmol/L (3.5-5.1); TOTAL BILIRUBIN 3.03 mg/dL (0.20-1.00); TOTAL PROTEIN 5.9 g/dL (6.3-8.3)
[2019-05-05 06:28] LABS: CREATININE 7.2 mg/dL (0.7-1.2)
[2019-05-05 06:45] LABS: BASO# 0.03 X1000 (0.0-0.2); BASO% 0.4 % (0.0-0.8); EOS# 0.55 X1000 (0.0-0.7); EOS% 7.9 % (0.0-10.0); HEMATOCRIT 23.1 % (42.0-52.0); HEMOGLOBIN 6.8 g/dL (14.0-18.0); LYMPH# 0.81 X1000 (1.2-3.4); LYMPH% 11.7 % (20.5-51.1); MCH 21.3 PG (27-31); MCHC 29.4 g/dL (33-37); MCV 72.4 FL (81-99); MONO# 0.86 X1000 (0.11-0.59); MONO% 12.4 % (1.7-9.3); MPV 10.1 FL (7.4-10.4); NEUT# 4.68 X1000 (1.4-6.5); NEUT% 67.6 % (42.2-75.2); PLT 356 X1000 (130-400); RBC 3.19 XMIL (4.7-6.1); RDW 23.3 % (11.5-14.5); WBC 6.93 X1000 (4.8-10.8)
[2019-05-05] MEDS ORDERED: NS 500 ML IV ONE (08:01)
[2019-05-05 08:08] LABS: AMYLASE 346 U/L (20-200); LIPASE 150 U/L (13-60)
[2019-05-05] MEDS: ZOLOFT PO SCH (08:11)
[2019-05-05] MEDS: PHOSLO PO SCH ×3 (08:11→17:37)
[2019-05-05] MEDS: PERCOCET-5 PO PRN ×2 (08:12→20:22)
[2019-05-05] MEDS: ZOSYN 2.25 GM in NS 50 ML IV SCH ×2 (08:13→20:03)
[2019-05-05] MEDS: NEPHROCAPS PO SCH (08:13)
[2019-05-05] MEDS: HEPARIN SUBQ SCH ×2 (08:13→20:08)
[2019-05-05] MEDS: INDERAL PO SCH ×2 (08:14→21:13)
--- NOTE | 2019-05-05 09:33 | PROGRESS NOTE ---
DATE: 05/05/2019 SUBJECTIVE: This patient is lying comfortably in bed. He is not complaining of chest pain but he is having some abdominal discomfort mostly at the level of epigastric area. He has nausea when he tries to drink some fluids. His hemoglobin dropped to 6.8. I will give him a unit of blood, also I have started this patient on antibiotics. OBJECTIVE: Vital Signs: Temperature 97.9, pulse 94, respiratory rate 17, blood pressure 113/65, oxygen saturation 98 on room air. HEENT: Head normocephalic. No trauma. PERRLA. Neck: Supple. No JVD. No masses. Central trachea. Chest: Clear to auscultation. No wheezing or rales. Abdomen: Soft, tenderness to palpation at the level of the epigastric area and right upper quadrant, mild soreness which is generalized. Positive bowel sounds. Multiple scars. No signs of infection on those scars. Extremities: No edema, no clubbing, no cyanosis. Neurological: The patient is alert. He is oriented x3. No focal deficits. LABORATORY: WBC 6.9, hemoglobin 6.8, hematocrit 23.1, platelet 356. Sodium 142, potassium 4.2, chloride 99, bicarbonate 25, BUN 33, creatinine 7.2, glucose 84, calcium 7.8, AST 290, ALT 162, alkaline phosphatase 723, bilirubin 3. ASSESSMENT AND PLAN: 1. Likely gallstone pancreatitis, ultrasound showed stones and sludge-filled gallbladder, Surgery Department on board. They are planning to do a laparoscopic cholecystectomy but we are treating at this moment the pancreatitis. Pending lipase and amylase, at this moment his pain is better compared with admission. Will continue with same management. 2. Anemia, I will transfuse this patient. Hemoglobin today is 6.8. 3. End-stage renal disease, on hemodialysis Saturday, Saturday, and Saturday. 4. Chest pain, resolved. I do not think it was cardiac related, probably this is due to pancreatitis and gallbladder related. 5. Hypertension. Actually, his blood pressure has been stable. 6. Elevated D-dimer. Negative for pulmonary embolism. No signs of deep venous thrombosis. 7. History of lower extremity deep venous thrombosis. He has been on Eliquis, which has been stopped due to his current condition. Probably he will go to the operating room in the near future. 8. Dyslipidemia. Atorvastatin has been stopped due to his elevated liver function tests. 9. Elevated liver function tests, as per number 1, likely due to gallstone pancreatitis. cc: Sawyer Dallas MD
[2019-05-05] MEDS: PROTONIX IV SCH (17:36)
[2019-05-05] MEDS: SODIUM CHLORIDE 0.9% INJ SCH (17:36)
--- NOTE | 2019-05-05 18:52 | NEPHROLOGY PROGRESS NOTE ---
DATE: 05/05/2019 DATE SEEN: 05/05/2019 TIME SEEN: 8:30 SUBJECTIVE: Mr. Hdz is resting in bed. Head of the bed is elevated. He has complaints of severe nausea. His is attempting to soothe him by rubbing his feet. OBJECTIVE: His most recent vital signs: Temperature 97.9 degrees, blood pressure 113/65, heart rate 94, respirations 17. He is on room air last recorded saturation 98%. He has had 782 and he has had 1400 off with dialysis yesterday. LABORATORY DATA: Sodium 142, potassium 4.2, chloride 99, CO2 25, BUN 33, creatinine 7.2, glucose 84. His anion gap is 18, calcium 7.8, albumin 2.5. White count 6.93, hemoglobin 6.8, hematocrit 23.1 with a platelet count of 356,000. The patient has amylase of 346 with a lipase of 150. PHYSICAL EXAMINATION: General: This is a 43-year-old white male. He is currently resting quietly in bed. Appears chronically ill. Mild distress secondary to nausea. Skin: Warm and dry. HEENT: Normocephalic. Atraumatic. Conjunctiva is pale. He has MAGI. Mucous membranes are dry. Neck: Supple. Trachea midline. No evidence of JVD. Cardiovascular: Regular rate and rhythm. No murmur or gallop appreciated. Lungs: Clear to auscultation bilaterally. Equal excursion. He is currently on room air. Abdomen: Tender to palpation. Hypo bowel sounds noted. Genitourinary: Not inspected. Minimal void with dialysis assist. Extremities: No edema. No clubbing or cyanosis. Fistula to the left upper arm is intact. Neurological: Alert and oriented x3. ASSESSMENT AND PLAN: 1. Chronic kidney disease stage 5D. Patient is due for his routine dialysis treatment in the a.m. No indications for intervention today. 2. Electrolytes and acid-base balance with correction on dialysis. 3. Anemia. Patient's hemoglobin has dropped from 8.8 to 6.8 this a.m. He has 1 unit of packed red blood cells ordered for this morning. We will re-evaluate his labs in the a.m. for indications of further transfusion secondary to patient needing to be a transplant patient free of minimal antigens. 4. Acute pancreatitis secondary to cholecystitis. This is followed with Dr. Matute and the primary care team. The patient remains on liquids only. I would like to thank you for allowing us to follow with this patient. Dictated by FRAN Workman for Ray Verdugo MD Face to face encounter, data reviewed, discussed with Herbert Bowen on 05/05/19. I agree with the above assessment and plan of care. cc: FRAN Workman MD [facility]
[2019-05-05] MEDS: REQUIP PO SCH (20:11)
--- NOTE | 2019-05-05 22:53 | GENERAL SURGERY PROGRESS NOTE ---
DATE: 05/05/2019 SUBJECTIVE: He has less pain, but he is still nauseated. His total bilirubin is up to 3.0. AST has started to come down. ALT started to come down and perhaps his alkaline phosphatase as well. Amylase and lipase are down significantly. DIAGNOSTIC STUDIES: White count is down to 6900. PLAN: Consider him for surgery on the . We will check his labs again tomorrow. Discussed with him the possibility that he would require an open procedure instead of laparoscopic depending on the amount of adhesions. He understands. cc: Ney Matute MD
[2019-05-06] MEDS: DILAUDID IV PRN ×4 (05:31→21:09)
[2019-05-06] MEDS: ZOFRAN IV PRN ×4 (05:36→21:09)
[2019-05-06 05:56] LABS: AMYLASE 161 U/L (20-200); LIPASE 85 U/L (13-60)
[2019-05-06 06:02] LABS: ALB/GLOB RATIO 0.6; ALBUMIN 2.4 g/dL (3.5-5.0); CALCIUM 7.9 mg/dL (8.8-10.2); POTASSIUM 4.3 mmol/L (3.5-5.1); TOTAL BILIRUBIN 1.87 mg/dL (0.20-1.00); TOTAL PROTEIN 6.1 g/dL (6.3-8.3)
[2019-05-06 06:20] LABS: BASO# 0.05 X1000 (0.0-0.2); BASO% 0.8 % (0.0-0.8); EOS# 0.82 X1000 (0.0-0.7); EOS% 13.8 % (0.0-10.0); HEMATOCRIT 24.3 % (42.0-52.0); HEMOGLOBIN 7.3 g/dL (14.0-18.0); LYMPH# 0.71 X1000 (1.2-3.4); MCH 22.1 PG (27-31); MCV 73.6 FL (81-99); MONO# 0.57 X1000 (0.11-0.59); MONO% 9.6 % (1.7-9.3); MPV 9.8 FL (7.4-10.4); NEUT# 3.79 X1000 (1.4-6.5); NEUT% 63.8 % (42.2-75.2); PLT 331 X1000 (130-400); RDW 22.9 % (11.5-14.5); WBC 5.94 X1000 (4.8-10.8)
[2019-05-06] MEDS ORDERED: HEPARIN IV PRN (06:24)
[2019-05-06] MEDS ORDERED: TIGHT: 0.2 ML/HR FOR DIALYSIS MISC PRN (06:24)
[2019-05-06] MEDS ORDERED: NS 2,000 ML MISC PRN (06:24)
[2019-05-06 06:31] LABS: CREATININE 9.2 mg/dL (0.7-1.2)
--- NOTE | 2019-05-06 08:55 | PROGRESS NOTE ---
DATE: 05/06/2019 SUBJECTIVE: This patient is getting dialysis at this moment. His hemoglobin dropped yesterday from 8.4 to 6.8, and he received 1 unit of PRBC. Today the hemoglobin is 7.3. LFTs are trending down, as well as the amylase and lipase. We will continue to monitor. Hopefully, this patient will have a cholecystectomy done in the near future, hopefully tomorrow. OBJECTIVE: Vital Signs: Temperature 98.2 degrees, pulse 77, respiratory rate 16, blood pressure 111/68, oxygen saturation 97% on room air. HEENT: Head normocephalic, no trauma. PERRLA. Neck: Supple. No JVD. No masses. Central trachea. Chest: Clear to auscultation. No wheezing. No rales. Abdomen: Soft. Tenderness to palpation at the level of the epigastric area and right upper quadrant. Mild soreness which is generalized. Positive bowel sounds. Multiple scars. No signs of infection on those scars. Extremities: No edema, no clubbing, no cyanosis. Neurological examination: The patient is alert. He is oriented x3. No focal deficits. LABORATORY: WBC 5.9, hemoglobin 7.3, hematocrit 24.3, platelet 331. Sodium 137, potassium 4.3, chloride 95, bicarbonate 20. BUN 47, creatinine 9.2, glucose 53, calcium 7.9. AST 96, ALT 114, alkaline phosphatase 693, amylase 161, lipase 85. ASSESSMENT AND PLAN: 1. Likely gallstone pancreatitis. Ultrasound showed stone and sludge-filled gallbladder. Surgery Department on board. Probably he will have a cholecystectomy done tomorrow. Liver function tests are trending down, as well as the pancreatic enzymes. He feels a bit better compared with admission, but he is still having abdominal pain. 2. Anemia, status post 1 packed red blood cell. I will monitor for now. Hemoglobin 7.3. 3. End-stage renal disease. He is on hemodialysis at this moment. We will continue to monitor. 4. Chest pain, resolved. 5. Hypertension, stable. 6. Elevated D-dimer, negative for pulmonary embolus. 7. History of lower extremity deep vein thrombosis. He has been on Eliquis which has been stopped during this current hospitalization. Probably, he will go to the operating room tomorrow. 8. Dyslipidemia. Atorvastatin has been stopped due to his elevated liver function tests. 9. Elevated liver function tests, likely due to gallstone pancreatitis. We will avoid hepatotoxic medications. cc: Sawyer Dallas MD
[2019-05-06] MEDS: NEPHROCAPS PO SCH (12:04)
[2019-05-06] MEDS: INDERAL PO SCH ×2 (12:05→21:10)
[2019-05-06] MEDS: ZOLOFT PO SCH (12:05)
[2019-05-06] MEDS: ZOSYN 2.25 GM in NS 50 ML IV SCH ×2 (12:06→21:09)
[2019-05-06] MEDS: HEPARIN SUBQ SCH ×2 (12:06→21:09)
[2019-05-06] MEDS: PHOSLO PO SCH ×3 (12:06→16:45)
--- NOTE | 2019-05-06 12:37 | GENERAL SURGERY PROGRESS NOTE ---
DATE: 05/06/2019 He is feeling better today. His numbers are improved with his total bilirubin down to 1.87. AST down to 96. ALT down to 114. Alkaline phosphatase down to 693. Amylase done to 161 and lipase down to 85. In view of his progress and improvement, I think we can go ahead and schedule him for a laparoscopic cholecystectomy for 05/07 with the possibility that we would have to do it open due to his previous surgery. He understands this. cc: Ney Matute MD
--- NOTE | 2019-05-06 14:09 | NEPHROLOGY PROGRESS NOTE ---
DATE: 05/06/2019 TIME SEEN: 0735. SUBJECTIVE: Mr. Hdz is preparing to start hemodialysis. He states that his nausea waxes and wanes. He is feeling okay today. OBJECTIVE: Vital Signs: Temperature is 98.2 degrees blood pressure 111/68, heart rate 77, respirations 16. He is on room air. Last recorded saturation 97%. He has had 240 in. He has had 0 recorded out. Labs: His sodium is 137, potassium 4.3, chloride is 95, CO2 is 20, BUN 47, creatinine is 9.2, glucose is 53, anion gap 22, calcium 7.9, albumin 2.4. White count 5.94, hemoglobin 7.3, hematocrit 24.3, with a platelet count of 331,000. Physical Examination: General: This is a 43-year-old, white male. He is resting quietly in bed. He is preparing to start hemodialysis. He appears chronically ill. No acute distress. Skin is warm and dry. HEENT: Normocephalic, atraumatic. Conjunctivae are pale. He has MAGI. Mucous membranes are dry. Neck: Supple. Trachea midline. No evidence of JVD. Cardiovascular: Regular rate and rhythm. No murmur or gallop appreciated. Lungs: Clear to auscultation bilaterally. Equal excursion, on room air. Abdomen: Soft. Slight tenderness on palpation. Hypoactive bowel sounds. Genitourinary: Not inspected. Minimal void with dialysis assist. Extremities: No edema. No clubbing or cyanosis. Fistula to the left upper arm is intact with good thrill. Neurological: Alert and oriented x3. ASSESSMENT AND PLAN: 1. Chronic kidney disease stage 5D. The patient is due for his routine dialysis treatment today. No indications for further intervention. He is to be placed on a 2 K bath. We will dialyze him for 3.5 hours. We will attempt to pull to outpatient dry weight. 2. Electrolytes and acid-base balance, with correction on dialysis. 3. Anemia. This does remain low at 7.3 after 1 unit of transfusion yesterday. No further indications for intervention. We will continue to monitor. 4. Acute pancreatitis secondary to cholecystitis. Dr. Matute has indicated plans for a possible laparoscopic cholecystectomy or open visual repair for his cholecystitis on the . I would like to thank you for allowing us to follow with this patient. Dictated by FRAN Workman for Ray Verdugo MD Face to face encounter, data reviewed, discussed with Herbert Bowen on 05/06/19. I agree with the above assessment and plan of care. cc: FRAN Workman MD [facility]
[2019-05-06] MEDS: PROTONIX IV SCH (16:45)
[2019-05-06] MEDS: SODIUM CHLORIDE 0.9% INJ SCH (16:45)
--- NOTE | 2019-05-06 19:03 | Extremity Venous Study ---
PROCEDURE NAME: Venous U/S Bilateral Legs - 05/04/2019 PROCEDURE: Bilateral lower extremity venous duplex, and color flow imaging study using the [employer] vivid E9 ultrasound System with a 9L-D transducer. REFERRING PHYSICIANS: Adam Serrano MD AGE: A 43-year-old male. STEEL WELDER: Yokasta Alexander RVT. INDICATIONS: Shortness of breath, history of deep venous thrombosis. FINDINGS: The right common femoral vein and its branches, deep and superficial femoral veins were satisfactorily imaged. They had flow through them and were compressible. Right popliteal vein and the deep veins for the right knee were all compressible and had flow through them. The superficial veins of the right lower extremity were compressible throughout their length. There was evidence of chronic changes involving the right popliteal vein with thickened vein clemens, but there was flow through this area of the deep venous system. The left common femoral vein and its branches, deep and superficial femoral veins were also satisfactorily imaged. They had flow through them and were compressible. Left popliteal vein and the deep veins for the left knee were all compressible and had flow through them. The superficial veins of the left lower extremity were compressible throughout their length. INTERPRETATION: Chronic inflammatory changes of the popliteal vein but there is flow through this vein. There was no evidence of acute deep or superficial venous thrombosis of the bilateral lower extremities. cc: MD Adam Hunter MD
[2019-05-06] MEDS: REQUIP PO SCH (21:10)
[2019-05-06] MEDS: PERCOCET-5 PO PRN (22:21)
[2019-05-07] MEDS: DILAUDID IV PRN ×5 (01:13→22:52)
[2019-05-07] MEDS: ZOFRAN IV PRN ×5 (01:15→22:52)
[2019-05-07 05:25] LABS: BASO# 0.07 X1000 (0.0-0.2); BASO% 1.3 % (0.0-0.8); EOS# 0.85 X1000 (0.0-0.7); EOS% 16.2 % (0.0-10.0); HEMOGLOBIN 8.1 g/dL (14.0-18.0); LYMPH# 0.72 X1000 (1.2-3.4); LYMPH% 13.7 % (20.5-51.1); MCH 22.3 PG (27-31); MCV 74.2 FL (81-99); MONO% 11.4 % (1.7-9.3); MPV 10.1 FL (7.4-10.4); NEUT# 3.02 X1000 (1.4-6.5); NEUT% 57.4 % (42.2-75.2); PLT 383 X1000 (130-400); RBC 3.64 XMIL (4.7-6.1); RDW 22.4 % (11.5-14.5); WBC 5.26 X1000 (4.8-10.8)
[2019-05-07 05:56] LABS: ALB/GLOB RATIO 0.8; POTASSIUM 3.9 mmol/L (3.5-5.1); TOTAL BILIRUBIN 1.37 mg/dL (0.20-1.00); TOTAL PROTEIN 6.8 g/dL (6.3-8.3)
[2019-05-07 06:09] LABS: CREATININE 6.7 mg/dL (0.7-1.2)
[2019-05-07] MEDS: HEPARIN SUBQ SCH (09:33)
[2019-05-07] MEDS: PHOSLO PO SCH ×3 (09:39→16:59)
[2019-05-07] MEDS: ZOLOFT PO SCH (09:40)
[2019-05-07] MEDS: NEPHROCAPS PO SCH (09:40)
[2019-05-07] MEDS: INDERAL PO SCH ×2 (09:40→20:27)
[2019-05-07] MEDS: ZOSYN 2.25 GM in NS 50 ML IV SCH ×2 (09:40→20:28)
--- NOTE | 2019-05-07 09:40 | PROGRESS NOTE ---
DATE: 05/07/2019 SUBJECTIVE: This patient is resting comfortably in bed. No acute events overnight. Vital signs are stable. He is still complaining of abdominal pain. Hemoglobin went up from 7.3 to 8.1. AST and ALT better compared with yesterday. Alkaline phosphatase a little bit more elevated compared with yesterday. OBJECTIVE: Vital Signs: Temperature 98.1 degrees, pulse 65, respiratory rate 23, blood pressure 109/64, oxygen saturation 96 on room air. HEENT: Head normocephalic. No trauma. PERRLA. Neck: Supple. No JVD. No masses. Central trachea. Chest: Clear to auscultation. No wheezing. No rales. Abdomen: Soft. Tenderness to palpation at the level of the epigastric area and right upper quadrant. Multiple scars. No signs of infection. Extremities: No edema, no clubbing, no cyanosis. Neurological: This patient is sleepy, but arousable. No changes. LABORATORY DATA: WBC 5.2, hemoglobin 8.1, hematocrit 27, platelets 383,000. Sodium 136, potassium 3.9, chloride 95, bicarbonate 22, BUN 26, creatinine 6.7, glucose 60, calcium 8. AST 68, ALT 92, alkaline phosphatase 179, albumin 3. ASSESSMENT AND PLAN: 1. Likely gallstone pancreatitis. Ultrasound showed stone and sludge-filled gallbladder. Surgery Department on board. Probably, he will have a cholecystectomy done today. I discussed the case with the , who is at the bedside. 2. Anemia, status post 1 packed red blood cells. Hemoglobin improved to 8.1. 3. End-stage renal disease. He had hemodialysis yesterday. Will continue to monitor. 4. Chest pain, resolved. 5. Hypertension, stable. 6. Elevated D-dimer. Negative for pulmonary embolism. 7. History of lower extremity deep venous thrombosis. He has been on Eliquis, which has been stopped during this hospitalization due to the possibility of surgery today. 8. Dyslipidemia. Atorvastatin has been stopped due to his elevated liver function tests. 9. Elevated liver function tests, likely due to gallstone pancreatitis. I will avoid nephrotoxic medications. cc: Sawyer Dallas MD
[2019-05-07] MEDS ORDERED: DIPRIVAN 1% ONE (12:26)
[2019-05-07] MEDS ORDERED: XYLOCAINE-MPF 2% ONE (12:27)
[2019-05-07] MEDS ORDERED: SODIUM CHLORIDE 0.9% 10 ML ONE (12:29)
[2019-05-07] MEDS ORDERED: NORCURON ONE (12:29)
[2019-05-07] MEDS ORDERED: QUELICIN (DOSE) ONE (12:29)
[2019-05-07] MEDS ORDERED: FENTANYL ONE (12:32)
[2019-05-07] MEDS ORDERED: SENSORCAINE 0.25%/EPI 1:200,000 ONE (13:38)
[2019-05-07] MEDS ORDERED: SODIUM CHLORIDE 0.9% ONE (13:39)
[2019-05-07] MEDS ORDERED: LR 1,000 ML ONE (13:39)
[2019-05-07] MEDS ORDERED: ZOFRAN ONE (13:39)
[2019-05-07] MEDS ORDERED: NIMBEX ONE (13:42)
[2019-05-07] MEDS ORDERED: DECADRON ONE (14:44)
[2019-05-07] MEDS ORDERED: EPHEDRINE ONE (14:49)
[2019-05-07] MEDS ORDERED: 1/2 NS 1,000 ML ONE (15:31)
[2019-05-07] MEDS: DILAUDID ONE ×3 (15:37→16:58)
--- NOTE | 2019-05-07 17:09 | Diag Imaging Result Doc PS360 ---
EXAM: OPERATIVE CHOLANGIOGRAM INDICATION: GALLBLADDER DX TECHNIQUE: COMPARISON: None. FINDINGS: Three spot fluoroscopic images were provided of the opacified common bile duct, which were performed during cholecystectomy by Dr. Ney Matute. The common bile duct appears grossly normal in caliber with no discrete filling defect or stricture identified. Contrast is seen flowing normally into the small bowel. IMPRESSION: As above. Please correlate with live fluoroscopic imaging. Electronically signed by Domingo Mariscal 05/07/2019 5:07 PM
[2019-05-07] MEDS: SODIUM CHLORIDE 0.9% INJ SCH (17:14)
[2019-05-07] MEDS: PROTONIX IV SCH (17:15)
[2019-05-07] MEDS: REQUIP PO SCH (20:26)
[2019-05-07] MEDS: PERCOCET-5 PO PRN (20:27)
--- NOTE | 2019-05-07 21:03 | NEPHROLOGY PROGRESS NOTE ---
DATE: 05/07/2019 SUBJECTIVE: Mr. Hdz is resting quietly in bed. His is at his bedside. Patient is currently NPO for possible surgery today per Dr. Matute. OBJECTIVE: Vital Signs: Temperature 98.8 degrees, blood pressure 131/75, heart rate 69, respirations 18. He is on room air. Last recorded saturation 96%. He has had 290 in and 1 L removed on dialysis yesterday. LABORATORY DATA: Sodium 136, potassium 3.9, chloride 95, CO2 22, BUN 26, creatinine 6.7, glucose is 60, anion gap of 19, calcium 8, albumin 3. White count 5.26, hemoglobin 8.1, hematocrit 27, platelet count 383,000 PHYSICAL EXAMINATION: General: This is a 43-year-old white male who is currently resting in bed. He is in mild distress secondary to abdominal discomfort. Skin: Warm and dry. HEENT: Normocephalic, atraumatic. Conjunctivae pale. He has MAGI. Mucous membranes are dry. Neck: Supple. Trachea midline. No evidence of JVD in the upright position. Cardiovascular: Regular rate and rhythm. The patient has no murmur or gallop appreciated. Lungs: Clear to auscultation anteriorly. Equal excursion. He remains on room air. Abdomen: Tender on palpation. Hypoactive bowel sounds. Genitourinary: Not inspected. Minimal void with dialysis assist. Extremities: With no edema. No clubbing or cyanosis. Neurological: Alert and oriented x3. ASSESSMENT AND PLAN: 1. Chronic kidney disease stage 5D. The patient is due for his routine dialysis treatment in the a.m.. He tolerated his dialysis treatment yesterday well. 2. Electrolytes and acid-base balance. These are acceptable. 3. Anemia. This remains low, but stable after transfusion of 1 unit of packed red blood cells. 4. Acute pancreatitis secondary to cholecystitis. This is followed by Dr. Matute with plans for possible abdominal surgery today. The patient is currently NPO. I would like to thank you for allowing us to follow with this patient. Dictated by FRAN Workman for Ray Verdugo MD [id number] encounter, data reviewed, discussed with Rena Bowen on 05/07/19. I agree with the above assessment and plan of care. cc: FRAN Workman Gladish, MD [facility]
--- NOTE | 2019-05-07 22:08 | GENERAL SURGERY PROGRESS NOTE ---
DATE: 05/07/2019 PROCEDURE: Laparoscopic cholecystectomy with operative cholangiogram. SURGEON: Ney Matute MD [employer]ER: ALBIN Solano PREOPERATIVE DIAGNOSES: 1. Gallstone pancreatitis. 2. Chronic calculous cholecystitis. 3. Chronic kidney disease stage 5. POSTOPERATIVE DIAGNOSES: 1. Gallstone pancreatitis. 2. Chronic calculous cholecystitis. 3. Chronic kidney disease stage 5. FINDINGS: Normal size common duct. There was free flow in the duodenum. No intraluminal filling defects were seen. DESCRIPTION OF PROCEDURE: Satisfactory general endotracheal anesthesia was achieved. The abdomen was prepped and draped in sterile fashion. The patient has had previous laparotomies and had a recent laparoscopic colostomy takedown. We began on the left upper quadrant because there was no incision there. We anesthetized the skin and made a transverse incision. We used an 11 trocar in Optiview technique to enter the abdominal cavity. We insufflated through this trocar. There was a window into the right upper quadrant, so under direct visualization I used a 5 trocar midclavicular line and a 5 trocar in the anterior axillary line. We then switched to a 5 camera and went through our anterior axillary line trocar. We then swept some of the adhesions down to the midline so that we could introduce an 11 trocar just above the umbilicus under direct visualization, and switched our camera to that trocar. We did that safely. We then switched to a 10 flexible-tip camera and went through the supraumbilical trocar site. We then placed the patient in reverse Trendelenburg and turned him to the left. The gallbladder was distended. We stuck an aspirating needle into the gallbladder and attempted to decompress it, but it had such thick bile and sludge that it would not aspirate well. We tried to grasp it with a ratcheted Allis, but it tore through the wall so ended up having to use a bulldog clamp to grasp the fundus reflect it cephalad. We began dissection of the triangle of Calot. We dissected that and identified the cystic artery, clipped it proximally x2, distally x1 and divided it. We then dissected out the cystic duct, and then the critical view was obtained. We then clipped the cystic duct near the junction of the gallbladder. We incised the cystic duct, introduced a Philadelphia catheter and shot the cholangiogram. The findings above were noted. We removed the cholangiogram catheter and clipped the cystic duct on the opposite side, with cystic ductotomy x2 and then transected it. We then used the cautery spatula to dissect the gallbladder away from the liver. Most of it was done bluntly, as it peeled out of the gallbladder fossa. We then changed the videolaparoscope to the left upper quadrant trocar and we introduced an EndoCatch, placed the gallbladder within the bag and delivered it out of the abdominal cavity. We had to enlarge the fascial incision in the midline to get the gallbladder delivered out of the abdominal cavity. We looked back, and we irrigated and aspirated. We used some Lisette to squirt into the gallbladder fossa the help achieve hemostasis, which we did feel like it obtained satisfactory hemostasis. We then used a Curtis-Adriel wound closure for the left upper quadrant trocar site, passing a 2-0 Polysorb through the abdominal wall. We then desufflated and removed our other trocars. We closed the fascia at the midline with 2-0 Polysorb [id number] stitches to approximate it. We then placed some 3-0 Polysorb subcutaneous stitches at the midline and then closed the skin at each incision with 4-0 Polysorb subcuticular stitches. Sterile OpSite were applied. He tolerated it well and was sent to the recovery room in satisfactory condition. cc: Ney Matute MD
[2019-05-08] MEDS: DILAUDID IV PRN ×5 (02:19→20:05)
[2019-05-08] MEDS: ZOFRAN IV PRN ×3 (05:27→20:07)
[2019-05-08 05:43] LABS: BASO# 0.01 X1000 (0.0-0.2); BASO% 0.2 % (0.0-0.8); HEMATOCRIT 23.1 % (42.0-52.0); HEMOGLOBIN 6.7 g/dL (14.0-18.0); LYMPH# 0.55 X1000 (1.2-3.4); LYMPH% 10.5 % (20.5-51.1); MCH 21.9 PG (27-31); MCV 75.5 FL (81-99); MONO# 0.52 X1000 (0.11-0.59); MONO% 9.9 % (1.7-9.3); MPV 10.1 FL (7.4-10.4); NEUT# 4.16 X1000 (1.4-6.5); NEUT% 79.4 % (42.2-75.2); PLT 333 X1000 (130-400); RBC 3.06 XMIL (4.7-6.1); RDW 22.1 % (11.5-14.5); WBC 5.24 X1000 (4.8-10.8)
[2019-05-08 05:58] LABS: ALB/GLOB RATIO 0.8; ALBUMIN 2.7 g/dL (3.5-5.0); CALCIUM 7.9 mg/dL (8.8-10.2); CREATININE 8.5 mg/dL (0.7-1.2); POTASSIUM 5.5 mmol/L (3.5-5.1); TOTAL BILIRUBIN 0.79 mg/dL (0.20-1.00); TOTAL PROTEIN 6.1 g/dL (6.3-8.3)
[2019-05-08] MEDS ORDERED: NS 2,000 ML MISC PRN (06:19)
[2019-05-08] MEDS ORDERED: HEPARIN IV PRN (06:19)
[2019-05-08] MEDS ORDERED: TIGHT: 0.2 ML/HR FOR DIALYSIS MISC PRN (06:19)
[2019-05-08] MEDS ORDERED: NS 500 ML IV ONE (06:20)
[2019-05-08] MEDS: PERCOCET-5 PO PRN ×2 (07:34→21:30)
[2019-05-08] MEDS: ZOSYN 2.25 GM in NS 50 ML IV SCH ×2 (08:46→20:07)
[2019-05-08] MEDS: PHOSLO PO SCH ×3 (08:50→18:22)
[2019-05-08] MEDS: ZOLOFT PO SCH (08:50)
[2019-05-08] MEDS: NEPHROCAPS PO SCH (08:50)
[2019-05-08] MEDS: INDERAL PO SCH ×2 (08:53→20:07)
--- NOTE | 2019-05-08 12:10 | PROGRESS NOTE ---
DATE: 05/08/2019 SUBJECTIVE: Patient is resting comfortably in bed. No acute events overnight. He had a surgery yesterday, a laparoscopic cholecystectomy with operative cholangiogram due to gallstone pancreatitis, chronic calculous cholecystitis. He has been having borderline low blood pressure. I talked to the patient to avoid too much pain medication. He has end-stage renal disease, and probably he will get dialysis today. He is also anemic. His hemoglobin dropped to 6.7. He will probably receive a couple units. OBJECTIVE: Vital Signs: Temperature 98.2 degrees, pulse 71, respiratory rate 18, blood pressure 108/63, oxygen saturation 99% on room air. HEENT: Head normocephalic, no trauma, PERRLA. Neck: Supple. No JVD. No masses. Central trachea. Chest: Clear to auscultation. No wheezing. No rales. Abdomen: Soft. Generalized tenderness to palpation but mostly at the level of the epigastric area and right upper quadrant. Decreased bowel sounds, but present. Multiple scars. No signs of infection. Extremities: No edema, no clubbing, no cyanosis. Neurological: The patient is sleepy, but arousable. No changes. LABORATORY: WBC 5.2, hemoglobin 6.7, hematocrit 23.1, platelets 333,000. Sodium 140, potassium 5.5, chloride 96, bicarbonate 17, BUN 38, creatinine 8.5, glucose 76, calcium 7.9, AST 52, ALT 64, alkaline phosphatase 601, amylase 102, lipase 49. ASSESSMENT AND PLAN: 1. Gallstone pancreatitis, status post laparoscopic cholecystectomy, and cholangiogram, postoperative day number 1. We will continue with the same management for now. We will try to continue pain medication, but the blood pressure has been borderline low, so we will monitor. 2. Anemia. He already received 1 PRBC, but now the hemoglobin dropped again to 6.7. He will receive a couple units of PRBCs. 3. End-stage renal disease. He had hemodialysis a couple days ago. Probably he will have dialysis today again. 4. Chest pain, resolved. 5. Hypertension, stable. Actually, this patient is borderline hypotensive. 6. Elevated D-dimer, negative for pulmonary emboli. 7. History of lower extremity DVT. He has been on Eliquis which has been stopped during this hospitalization due to surgery. Now his hemoglobin is around 6.7. I will hold it for now, but probably we need to restart it at some point. 8. Dyslipidemia. Atorvastatin has been stopped due to his elevated LFTs. 9. Elevated LFTs as above, likely due to gallstone pancreatitis. cc: Sawyer Dallas MD
--- NOTE | 2019-05-08 13:36 | NEPHROLOGY PROGRESS NOTE ---
DATE: 05/08/2019 SUBJECTIVE: Mr. Hdz is resting quietly in bed. He is status postoperative day #1. States that he has abdominal discomfort. Denies increased work of breathing. OBJECTIVE: Vital Signs: Temperature 98.4 degrees, blood pressure 108/70, heart rate is 82, respirations 14. He is on 2 L nasal cannula. Last recorded saturation 100%. He has had 820 in and 35 mL out, with need for dialysis. LABORATORY DATA: Sodium 140, potassium 5.5, chloride 96, CO2 17, BUN 38, creatinine 8.5, glucose 76. His anion gap is 27, calcium 7.9, albumin 2.7. White count 5.24, hemoglobin 6.7, hematocrit 23.1 with a platelet count of 333,000. PHYSICAL EXAMINATION: General: This is a 43-year-old white male resting quietly in bed. He appears in moderate distress secondary to abdominal discomfort. Skin: Warm and dry. HEENT: Normocephalic, atraumatic. Conjunctiva is pale pink. He has PERRL. Mucous membranes are dry. Neck: Supple. Trachea midline. He has no evidence of JVD. Cardiovascular: Regular rate and rhythm. No murmur or gallop. Lungs: Clear to auscultation anterior. Poor inspiratory effort secondary to inability to take a big deep breath. Remains on O2 support. Abdomen: Tender. The patient has multiple small dressings across the abdomen and midline. These all have shadow drainage present. Patient has no audible bowel sounds at this time. Abdomen is quiet. Genitourinary: Not inspected. Normal void with dialysis assist. Extremities: No edema. No clubbing or cyanosis. Neurological: Alert and oriented x3. ASSESSMENT AND PLAN: 1. Chronic kidney disease stage 5D. The patient is due for his routine dialysis treatment today. We will place him on a 2 K bath. He is to dialyze for 3.5 hours. We will attempt to pull him to his outpatient dry weight. We have requested no heparin. 2. Electrolytes and acid-base balance. These are acceptable with correction on dialysis. 3. Anemia. This is low. We have ordered 2 units of packed red blood cells to be transfused today. 4. Acute pancreatitis secondary to cholecystitis. Patient is status postoperative day #1 for laparoscopic cholecystectomy. This is followed by Dr. Matute and the primary care team. I would like to thank you for allowing us to follow with this patient. Dictated by FRAN Workman for Ray Verdugo MD cc: FRAN Workman MD
--- NOTE | 2019-05-08 13:52 | GENERAL SURGERY PROGRESS NOTE ---
DATE: 05/08/2019 He is doing generally well. Nausea is improved. His hemoglobin is down to 6.7, hematocrit 23. Bandages look dry. He is afebrile. Heart rate 71, blood pressure 108/63. RECOMMENDATIONS: I would recommend she stay on clear liquids today. Advance his diet tomorrow. I agree with transfusion. Should only continued to improve. If he goes home over the weekend I would like to see him in the office in a week. I discussed this with him and his . cc: Ney Matute MD
[2019-05-08] MEDS: REQUIP PO SCH (20:07)
[2019-05-08] MEDS: SODIUM CHLORIDE 0.9% INJ SCH (20:08)
[2019-05-08] MEDS: PROTONIX IV SCH (20:08)
[2019-05-09] MEDS: DILAUDID IV PRN ×6 (00:13→21:28)
[2019-05-09] MEDS: ZOFRAN IV PRN ×3 (00:13→17:45)
[2019-05-09 06:31] LABS: BASO# 0.03 X1000 (0.0-0.2); BASO% 0.7 % (0.0-0.8); EOS# 0.49 X1000 (0.0-0.7); EOS% 11.3 % (0.0-10.0); HEMATOCRIT 28.7 % (42.0-52.0); HEMOGLOBIN 8.8 g/dL (14.0-18.0); LYMPH% 13.8 % (20.5-51.1); MCH 23.6 PG (27-31); MCHC 30.7 g/dL (33-37); MCV 76.9 FL (81-99); MONO# 0.63 X1000 (0.11-0.59); MONO% 14.5 % (1.7-9.3); MPV 10.3 FL (7.4-10.4); NEUT# 2.59 X1000 (1.4-6.5); NEUT% 59.7 % (42.2-75.2); PLT 295 X1000 (130-400); RBC 3.73 XMIL (4.7-6.1); RDW 21.8 % (11.5-14.5); WBC 4.34 X1000 (4.8-10.8)
[2019-05-09 06:36] LABS: ALB/GLOB RATIO 0.7; ALBUMIN 2.6 g/dL (3.5-5.0); CALCIUM 8.7 mg/dL (8.8-10.2); CREATININE 5.7 mg/dL (0.7-1.2); POTASSIUM 3.8 mmol/L (3.5-5.1); TOTAL BILIRUBIN 0.87 mg/dL (0.20-1.00); TOTAL PROTEIN 6.2 g/dL (6.3-8.3)
[2019-05-09] MEDS: INDERAL PO SCH ×2 (08:00→20:16)
[2019-05-09] MEDS: ZOLOFT PO SCH (08:01)
[2019-05-09] MEDS: PHOSLO PO SCH ×3 (08:01→17:46)
[2019-05-09] MEDS: NEPHROCAPS PO SCH (08:01)
[2019-05-09] MEDS: ZOSYN 2.25 GM in NS 50 ML IV SCH ×2 (08:02→20:17)
--- NOTE | 2019-05-09 10:03 | NEPHROLOGY PROGRESS NOTE ---
DATE: 05/09/2019 SUBJECTIVE: Mr. Hdz is resting quietly in bed. He has had difficulty getting his pain under control. His is at his bedside and stated that he had gotten up and walked to the bathroom yesterday with much discomfort. VITAL SIGNS: Temperature 98.3 degrees, blood pressure 110/75, heart rate 77, respirations 20, he is on room air, last recorded saturation 92%. He has had 1433 in and 2781 out. LABORATORY DATA: Sodium 138, potassium 3.8, chloride 96, CO2 24, BUN 21, creatinine 5.7, glucose 88. His anion gap is 18, calcium is 8.7, albumin of 2.6. White count 4.34, hemoglobin 8.8, hematocrit 28.7 with a platelet count of 295,000. PHYSICAL EXAMINATION: General: This is a 43-year-old white male resting quietly in bed. He appears chronically ill, though no acute distress. Skin: Warm and dry. HEENT: Normocephalic, atraumatic. Conjunctiva is pale pink. He has PERRL. Mucous membranes are dry. Neck: Supple, trachea midline, no evidence of JVD. Cardiovascular: Regular rate and rhythm. No murmur or gallop appreciated. Lungs: Clear to auscultation bilaterally. Equal excursion on room air. The patient is making poor inspiratory effort, decreased in the bases. Abdomen: Tender to palpation. Dressings remain intact across the abdomen and midline. Shadow drainage remains present. Minimal bowel sounds today, improved from yesterday. Genitourinary: Not inspected. Minimal void with dialysis assist. Extremities: No edema. No clubbing or cyanosis. Neurological: Alert and oriented x3. ASSESSMENT AND PLAN: 1. Chronic kidney disease stage 5D. He tolerated his dialysis treatment yesterday well. We have held his heparin. No indications for intervention today. We will plan for dialysis on Saturday if he remains hospitalized. 2. Electrolytes and acid-base balance. These have been acceptable. 3. Anemia. This is a little bit improved after 2 units of packed red blood cells yesterday, now up to 8.8. 4. Acute pancreatitis secondary to cholecystitis. Patient is postoperative day #2 secondary to laparoscopic cholecystectomy. Followed by Dr. Matute. 5. Decreased inspiratory effort with abdominal pain. We have requested that the patient sit up in a chair at least 3 times a day. We will order incentive spirometer to get him to take bigger breaths secondary to his splinting and have requested that he talk to Dr. Matute about increased activity. I would like to thank you for allowing us to follow with this patient. Dictated by FRAN Workman for Ray Verdugo MD cc: FRAN Workman MD
--- NOTE | 2019-05-09 11:16 | PROGRESS NOTE ---
DATE: 05/09/2019 SUBJECTIVE: The patient is resting comfortably in bed. No acute events overnight. He had a surgery 2 days ago, laparoscopic cholecystectomy with intraoperative cholangiogram due to gallstone pancreatitis, chronic calculous cholecystitis. He seems to be doing better. Blood pressure has been more stable. Hemoglobin improved from 6.7 to 8.8 after 2 units of PRBCs. LFTs are trending down. OBJECTIVE: Vital Signs: Temperature 98.5, pulse 80, respiratory rate 18, blood pressure 122/72, oxygen saturation 94 on room air. HEENT: Head normocephalic. No trauma. PERRLA. Neck: Supple. No JVD. No masses. Central trachea. Chest: Clear to auscultation. No wheezing. No rales. Abdomen: Soft, generalized tenderness to palpation mostly at the level of the epigastric area, right upper quadrant. He does have some new small scars from the laparoscopic cholecystectomy, that seems to be fine. He also has some old scars without any signs of infection. Extremities: No edema, no clubbing, no cyanosis. Neurological examination: This patient is alert. He is oriented x3. No focal deficit. LABORATORY: WBC 4.3, hemoglobin 8.8, hematocrit 28.7, platelet 295. Sodium 138, potassium 3.8, chloride 96, bicarbonate 24, BUN 21, creatinine 5.7, glucose 88, calcium 8.7, AST 42, ALT 57, alkaline phosphatase 545, albumin 2.6. ASSESSMENT AND PLAN: 1. Gallstone pancreatitis status post laparoscopic cholecystectomy with intraoperative cholangiogram, postoperative day number 1. Will continue with the same management for now. His diet has been advanced today, lets see how he does, probably this patient will be discharged in the next 24-48 hours. 2. Anemia, status post 2 packed red blood cells yesterday, hemoglobin improved from 6.7 to 8.8. Will continue to monitor. 3. End-stage renal disease status post dialysis yesterday, 2.7 L of fluid has been removed. Will monitor. 4. Elevated D-dimer. Negative for pulmonary emboli. 5. Hypertension, stable. 6. History of lower extremity deep venous thrombosis. He has been on Eliquis, which has been stopped during this hospitalization due to surgery. Hemoglobin has been low and he has been getting blood transfusion, probably we will need to restart this at some point probably upon discharge. 7. Dyslipidemia. Atorvastatin has been stopped due to his elevated LFTs but once the LFTs are better he can be back on his medications. 8. Elevated liver function tests, as above, likely due to gallstone pancreatitis. cc: Sawyer Dallas MD
[2019-05-09] MEDS: TORADOL IV SCH ×2 (13:12→17:46)
[2019-05-09] MEDS: PERCOCET-5 PO PRN ×2 (13:12→20:16)
--- NOTE | 2019-05-09 13:44 | GENERAL SURGERY PROGRESS NOTE ---
DATE: 05/09/2019 SUBJECTIVE: The patient complains of abdominal pain. OBJECTIVE: Vital signs: He is afebrile. Vital signs are stable. General: He is awake, alert, oriented x3. No acute distress. Gastrointestinal: Soft, nondistended. Appropriately tender. Incision is clean, dry, and intact. LABORATORY DATA: White blood cell count 4.3, hemoglobin 8.8, hematocrit 28.7. Electrolytes reviewed and unremarkable. LFTs are slowly improving. ASSESSMENT AND PLAN: A 43-year-old male, postoperative day 1, laparoscopic cholecystectomy for gallstone pancreatitis. He has had a significant amount of pain unrelieved by Dilaudid. However, he does not appear to be in any acute distress. He does not have an acute abdomen on exam. I have added Toradol for a couple of days to see if we get better pain relief. I have encouraged him to ambulate as well. cc: Enrique Ordoñez MD
[2019-05-09] MEDS: SODIUM CHLORIDE 0.9% INJ SCH (17:46)
[2019-05-09] MEDS: PROTONIX IV SCH (17:46)
[2019-05-09] MEDS: EUCERIN CREAM TOP SCH (20:15)
[2019-05-09] MEDS: REQUIP PO SCH (20:16)
[2019-05-10] MEDS: TORADOL IV SCH ×4 (00:45→18:46)
[2019-05-10] MEDS: DILAUDID IV PRN ×3 (04:47→20:15)
[2019-05-10 06:00] LABS: ALBUMIN 2.8 g/dL (3.5-5.0); CALCIUM 8.6 mg/dL (8.8-10.2); PHOSPHORUS 5.2 mg/dL (2.7-4.5); POTASSIUM 3.7 mmol/L (3.5-5.1)
[2019-05-10 06:08] LABS: CREATININE 8.3 mg/dL (0.7-1.2)
[2019-05-10] MEDS: NEPHROCAPS PO SCH (08:25)
[2019-05-10] MEDS: INDERAL PO SCH ×2 (08:25→21:42)
[2019-05-10] MEDS: ZOLOFT PO SCH (08:26)
[2019-05-10] MEDS: ZOFRAN IV PRN ×2 (08:26→20:15)
[2019-05-10] MEDS: PHOSLO PO SCH ×3 (08:26→18:46)
[2019-05-10] MEDS: ZOSYN 2.25 GM in NS 50 ML IV SCH ×2 (08:26→20:13)
[2019-05-10] MEDS: EUCERIN CREAM TOP SCH (08:27)
--- NOTE | 2019-05-10 11:36 | PROGRESS NOTE ---
DATE: 05/10/2019 SUBJECTIVE: This patient states that he is feeling better. He is still complaining of abdominal pain. Apparently, he has been passing some gas and had a small bowel movement yesterday. He is tolerating p.o. He has been complaining of some rash in the inguinal area that looks like a fungal infection. I will start this patient on clotrimazole. OBJECTIVE: Vital Signs: Temperature 98 degrees, pulse 76, respiratory rate 14, blood pressure 118/78, oxygen saturation 99 on room air. HEENT: Head normocephalic. No trauma. PERRLA. Neck: Supple. No JVD. No masses. Central trachea. Chest: Clear to auscultation. No wheezing. No rales. Abdomen: Soft. Generalized tenderness to palpation, mostly at the level of the epigastric, right upper quadrant, and periumbilical area. He does have some new scars from the laparoscopic cholecystectomy and they seem to be fine. He also has some old scars without any signs of infection. Extremities: No edema, no clubbing, no cyanosis. Neurological Examination: The patient is alert. He is oriented x3. No focal deficits. Incision Area: He has a rash. Laboratory: Sodium 143, potassium 3.7, chloride 101, bicarbonate 26, BUN 31, creatinine 8.3, glucose 117, calcium 8.2, phosphorus 5.2, albumin 2.8. ASSESSMENT AND PLAN: 1. Gallstone pancreatitis, status post laparoscopic cholecystectomy with intraoperative cholangiogram, postoperative day #2. Continue with the same management. It looks like he is tolerating a diet. He will need to avoid too much intravenous narcotics. He apparently is passing some gas and had a small bowel movement yesterday. We will continue to monitor this patient closely. 2. Anemia, status post 2 units of packed red blood cells two days ago. Hemoglobin improved from 6.7 to 8.8. I will reevaluate this tomorrow. 3. End-stage renal disease, status post dialysis, 2.7 L of fluid has been removed the last time when he had dialysis. 4. Elevated D-dimer, negative for pulmonary emboli. 5. Hypertension, stable. 6. History of lower extremity deep venous thrombosis. He has been on Eliquis before which has been stopped due to this surgery. 7. Dyslipidemia. Atorvastatin has been stopped due to his elevated liver function tests. 8. Elevated liver function tests, as above. Continue to monitor for now. Likely due to gallstone pancreatitis. cc: Sawyer Dallas MD
[2019-05-10] MEDS: PERCOCET-5 PO PRN (14:12)
--- NOTE | 2019-05-10 14:30 | NEPHROLOGY PROGRESS NOTE ---
DATE: 05/10/2019 TIME SEEN: 1210 SUBJECTIVE: Mr. Hdz is resting quietly in bed. Head of bed is elevated. He has had the lights out in the room. States that he is not hungry at this time. He has been out of bed x1 for small amount of time. OBJECTIVE: Vital Signs: Temperature 98 degrees, blood pressure 118/78, heart rate is 76, respirations 14, he is currently on room air, last recorded saturation 99%. He has had 300 in, he has had 0 recorded out with dialysis in the a.m. LAB: Sodium 143, potassium 3.7, chloride 101, CO2 26, BUN 31, creatinine 8.3, glucose is 117, anion gap is 16, calcium 8.6, phosphorus 5.2, albumin 2.8 with a previous hemoglobin of 8.8. PHYSICAL EXAM: General: This is a 43-year-old white male resting quietly in bed. He appears chronically ill no acute distress. Skin: Warm and dry. HEENT: Normocephalic, atraumatic. Conjunctivae pale. He has MAGI. Mucous membranes are dry. Neck: Supple. Trachea midline. No evidence of JVD. Cardiovascular: Regular rate and rhythm. No murmur or gallop appreciated. Lungs: Clear to auscultation bilaterally. Equal excursion on room air. Abdomen: Tender to palpation. Dressings remain dry and intact across the abdomen. Bowel sounds positive upon auscultation. Genitourinary: Not inspected. Minimal void with dialysis assist. Extremities: With no edema, no clubbing or cyanosis. Neurological: Alert and oriented x3. ASSESSMENT AND PLAN: 1. Chronic kidney disease stage 5D. Patient is due for his routine dialysis treatment in the a.m. No indications for intervention today. 2. Electrolytes and acid-base balance. These have been acceptable on dialysis. 3. Anemia. This remains low but stable after transfusion. 4. Acute pancreatitis secondary to cholecystitis. Patient is postoperative day #3 with a laparoscopic cholecystectomy followed by the primary care and Dr. Matute. 5. Inspiratory effort. Patient has been using his incentive spirometer at the bedside. He states that he has been getting up at least 3 times a day. We will defer for further advancement in his activity to the Primary Care or Surgery. Like to thank you for allowing us to follow with this patient. Dictated by FRAN Workman for Ray Verdugo MD cc: FRAN Workman MD
[2019-05-10] MEDS: ELIQUIS PO SCH ×2 (14:35→20:13)
--- NOTE | 2019-05-10 14:49 | GENERAL SURGERY PROGRESS NOTE ---
DATE: 05/10/2019 SUBJECTIVE: The patient continues to complain of pain. He is not eating a whole lot. His says he is having some depression. He is able to get up and walk around a little bit. He is eating a few bits of food, and drinking a little liquid, but not a lot. OBJECTIVE: Vital Signs: He is afebrile. Vital signs are stable. General: He is awake, alert, and oriented x3. No acute distress. CV: Regular rate and rhythm. Respiratory: Bilateral breath sounds. No work of breathing. GI: Soft, nondistended, mildly tender. No rebound or guarding. Incisional dressings are clean and dry. LABORATORY DATA: Electrolytes were reviewed and unremarkable today. ASSESSMENT AND PLAN: A 43-year-old male status post laparoscopic cholecystectomy for gallstone pancreatitis. He appears to be healing, but continues to struggle with pain and oral intake. Therefore, we will continue with observation in the hospital. I have encouraged more oral intake and ambulation. Dr. Matute will reassess tomorrow. cc: Enrique Ordoñez MD
[2019-05-10] MEDS: PROTONIX IV SCH (18:46)
[2019-05-10] MEDS: SODIUM CHLORIDE 0.9% INJ SCH (18:46)
[2019-05-10] MEDS: LOTRIMIN 1% CREAM TOP SCH ×2 (18:46→21:25)
[2019-05-10] MEDS: REQUIP PO SCH (20:13)
[2019-05-11] MEDS: TORADOL IV SCH ×3 (00:52→12:42)
[2019-05-11] MEDS: DILAUDID IV PRN (01:00)
[2019-05-11] MEDS: ZOFRAN IV PRN ×3 (01:00→12:44)
[2019-05-11 05:36] LABS: BASO# 0.04 X1000 (0.0-0.2); BASO% 0.7 % (0.0-0.8); EOS# 1.23 X1000 (0.0-0.7); EOS% 21.5 % (0.0-10.0); HEMATOCRIT 28.4 % (42.0-52.0); HEMOGLOBIN 8.7 g/dL (14.0-18.0); IMM GRAN# 0.02 X1000 (0.0-0.04); IMM GRAN% 0.3 % (0.0-0.5); LYMPH# 0.96 X1000 (1.2-3.4); LYMPH% 16.8 % (20.5-51.1); MCH 24.3 PG (27-31); MCHC 30.6 g/dL (33-37); MCV 79.3 FL (81-99); MONO# 0.84 X1000 (0.11-0.59); MONO% 14.7 % (1.7-9.3); NEUT# 2.63 X1000 (1.4-6.5); PLT 252 X1000 (130-400); RBC 3.58 XMIL (4.7-6.1); RDW 23.3 % (11.5-14.5); WBC 5.72 X1000 (4.8-10.8)
[2019-05-11 06:16] LABS: ALB/GLOB RATIO 0.8; ALBUMIN 2.7 g/dL (3.5-5.0); CALCIUM 8.8 mg/dL (8.8-10.2); CREATININE 9.5 mg/dL (0.7-1.2); PHOSPHORUS 5.3 mg/dL (2.7-4.5); POTASSIUM 3.7 mmol/L (3.5-5.1); TOTAL BILIRUBIN 0.66 mg/dL (0.20-1.00)
[2019-05-11] MEDS ORDERED: TIGHT: 0.2 ML/HR FOR DIALYSIS MISC PRN (06:17)
[2019-05-11] MEDS ORDERED: HEPARIN IV PRN (06:17)
[2019-05-11] MEDS ORDERED: NS 2,000 ML MISC PRN (06:17)
[2019-05-11] MEDS: PHOSLO PO SCH ×3 (08:16→18:36)
[2019-05-11] MEDS: ZOLOFT PO SCH (08:17)
[2019-05-11] MEDS: ZOSYN 2.25 GM in NS 50 ML IV SCH (08:17)
[2019-05-11] MEDS: ELIQUIS PO SCH (08:17)
[2019-05-11] MEDS: NEPHROCAPS PO SCH (08:17)
[2019-05-11] MEDS: INDERAL PO SCH (08:21)
[2019-05-11] MEDS: PERCOCET-5 PO PRN (08:30)
--- NOTE | 2019-05-11 09:11 | GENERAL SURGERY PROGRESS NOTE ---
DATE: 05/11/2019 Mr. Hdz is now 4 days after his laparoscopic cholecystectomy. He continues to progress. His issues seem to be more depression now than physiologic. He is taking p.o. intake. His bowels have moved. His wounds were fine. His chemistry all is improving. So from my perspective, he can go home. He will return to see me in the office in a week. cc: Ney Matute MD
--- NOTE | 2019-05-11 09:29 | NEPHROLOGY PROGRESS NOTE ---
DATE: 05/11/2019 TIME SEEN: 0700. SUBJECTIVE: Mr. Hdz is sitting up in a chair. He is getting ready to go to the restroom. He states that he has been very weak. He is depressed and is unable to eat. LABORATORY DATA: Sodium 143, potassium 3.7, chloride 101, CO2 of 24, BUN 35, creatinine 9.5, glucose 115, his anion gap is 18, calcium 8.8, magnesium 1.9, phosphorus 5.3, albumin 2.7. White count 5.7, hemoglobin 8.7, hematocrit 28.4, with a platelet count of 252,000. OBJECTIVE: Most Recent Vital Signs: Temperature 98 degrees, blood pressure 126/67, heart rate 69, respirations 20. He is on room air. Last recorded saturation 97%. He has had 600 in. He has had 0 recorded out. General: This is a 43-year-old white male, resting quietly in bed. He appears chronically ill, in no acute distress. Skin: Warm and dry. HEENT: Normocephalic, atraumatic. Conjunctiva is pale. He has MAGI. Mucous membranes are dry. Neck: Supple. Trachea midline. No evidence of JVD. Cardiovascular: He is regular rate and rhythm. No murmur or gallop auscultated. Lungs: Diminished bilaterally, otherwise clear to auscultation anteriorly. Equal excursion on room air. Abdomen: Tender to palpation, there are small dressings across his abdominal area. He has positive bowel sounds. Genitourinary: Not inspected. Minimal void with dialysis assist. Extremities: No edema. No clubbing or cyanosis. Neurological: Alert and oriented x3. ASSESSMENT AND PLAN: 1. Chronic kidney disease stage 5D. The patient is due for his routine dialysis treatment today. We will place him on a 3-potassium bath. He is to dialyze for 3.5 hours. We will attempt to pull him to his outpatient dry weight. 2. Electrolytes and acid-base balance with correction on dialysis. 3. Anemia. Hemoglobin remains stable at 8.7 after 2 units of packed red blood cell transfusion on Saturday. 4. Acute pancreatitis secondary to cholecystitis, postoperative day #4. Positive bowel sounds. Diminished appetite. Followed by Dr. Matute and the primary care. 5. Inspiratory effort. The patient is doing much better after starting his incentive spirometer. states that she has continued to remind him to do this every 4 hours. The patient has been up walking the domingo minimally yesterday. He continues to be up in a chair 3 times a day. We have encouraged him to sit in a chair for his meals. We will defer to the primary care and Dr. Matute for further advancement of his activity. I would like to thank you for allowing us to follow with this patient. Dictated by FRAN Workman for Evangelina Le MD cc: FRAN Workman Ralp-in-rptx encounter, data reviewed and patient discussed with Rena Bowen on 05/11/19. I agree with above assessment and plan of care. SHANNAN
[2019-05-11 12:28] VITALS: BP 131/87
[2019-05-11] MEDS: LOTRIMIN 1% CREAM TOP SCH (18:35)
[2019-05-11] MEDS: PROTONIX IV SCH (18:36)
--- NOTE | 2019-05-12 08:11 | DISCHARGE SUMMARY ---
ADMISSION DATE: 05/03/2019 DISCHARGE DATE: 05/11/2019 DISCHARGE DIAGNOSES: 1. Gallstone pancreatitis, status post laparoscopic cholecystectomy with intraoperative cholangiogram. 2. Anemia status post three packed red blood cells. 3. End-stage renal disease on hemodialysis. 4. Elevated D-dimer, negative for pulmonary emboli. 5. Hypertension. 6. History of lower extremity deep vein thrombosis, on Eliquis. 7. Dyslipidemia. Atorvastatin has been stopped for now due to elevated liver function tests. 8. Elevated liver function tests. PROCEDURES PERFORMED: 1. Abdomen x-ray dated 05/03/2019 impression: Nonspecific abdomen. 2. Chest x-ray dated 05/03/2019 impression: Low lung volumes and suggestion of minimal left basilar atelectasis. No definite acute pathology by plain radiograph, otherwise. 3. Pulmonary arteriogram dated 05/03/2019 impression: Small left pleural effusion with moderate atelectasis at the lung base and minimal right basilar atelectasis, large amount of what appears to be heterogeneous sludge in the gallbladder lumen, trace ascites around liver and spleen, as well as left paracolic gutter. No evidence of pulmonary embolism. 4. Lower extremity venous ultrasound dated 05/04/2019 interpretation: Chronic inflammatory changes of the popliteal vein, but there is flow through this vein. There is no evidence of acute deep or superficial venous thrombosis of the bilateral lower extremities. 5. Intraoperative cholangiogram dated 05/07/2019 impression: The common bile duct appears grossly normal in caliber with no filling defect or stricture identified. Contrast is seen flowing normally into the small bowel. HOSPITAL COURSE: A 43-year-old, male with a past medical history of end-stage renal disease on hemodialysis Saturday, Saturday, and Saturday, possible immunosuppression right lower extremity DVT, chronic bilateral lower extremity edema, hypertension, dyslipidemia, anemia of chronic disease, who presented to the emergency department to [facility] ER with a chief complaint of abdominal pain and chest pain, associated with nausea and vomiting. Two weeks before admission had a colostomy reversal done. He is also noted to be a renal transplant x3 patient. At the laboratory, it was noticed that this patient's D-dimer was elevated at 3.4, elevated BUN and creatinine. Hemoglobin was 8. Cardiac enzymes were negative x2. ProBNP 8244, which appeared to be around his baseline. On 04/09/2018, it was around 8450, but at this moment his amylase was elevated as well as his lipase 496/1879 respectively. Abdomen x-ray was nonspecific x-ray with some atelectasis. Pulmonary arteriogram showed small left pleural effusion, moderate atelectasis in the lung base and minimal right basilar atelectasis, and a large amount of what appeared to be heterogeneous sludge in the gallbladder lumen. Some ascites. No evidence of PE. He was transferred to [facility] to be evaluated by Surgery Department, and to continue his dialysis. Since he was having elevated LFTs, and also he was having increase of his pancreatic enzymes, we suspect that the problem was related to gallstone pancreatitis, and actually we did a renal ultrasound that showed stones and sludge- filled gallbladder. Surgery Department got on board. He received some fluids on and off, and of course Nephrology Department was on board also. He was dialyzed as scheduled and we monitored his LFTs and also pancreatic enzymes frequently. They were trending down nicely, and the decision of doing a cholecystectomy was planned, and it was actually done on 05/07/2019 due to, like I mentioned before, gallstone pancreatitis, chronic calculous cholecystitis and CKD stage 5. A laparoscopic cholecystectomy with intraoperative cholangiogram that did not show any obstruction in the biliary tree. After the procedure, the patient was getting better. Of course, he was complaining of abdominal pain. We started moving this patient and he started walking. Sometimes he was feeling dizzy and short of breath, but we tried to avoid as much as we can the narcotics due to his borderline low blood pressure, and that was explained to the patient and the , who basically was at the bedside the whole time. No evidence of complications with this surgery. He is tolerating p.o., passing gas and having bowel movements. He is still complaining of abdominal pain, but I believe he will recover slowly. I had an extensive conversation with the patient and the about his situation. Vital signs and lab work today are stable. Surgery Department evaluated this patient and they are okay to send this patient home with a strict follow up by Dr. Matute in 1 week. Also he needs to follow up with Nephrology Department upon discharge and continue with dialysis. He seems to be stable. PHYSICAL EXAMINATION: Vital signs: Temperature 98.1 degrees, pulse 89, respiratory rate 15, blood pressure 131/87, oxygen saturation 100% on room air. HEENT: Head normocephalic, no trauma. PERRLA. Neck: Neck is supple. No JVD. No masses. Central trachea. Chest: Clear to auscultation. No wheezing. No rales. Abdomen: Soft. Tenderness to palpation at the level of the epigastric area and right upper quadrant. Multiple scars with no bleeding or signs of infection. Extremities: No edema, no clubbing, no cyanosis. Neurological examination: This patient is alert. He is answering all my questions. No changes. No focal deficit, but generalized weakness. LABORATORY: WBC 5.2, hemoglobin 8.7, hematocrit 28.4, platelets 252. Sodium 143, potassium 2.7, chloride 101, bicarbonate 24. BUN 35, creatinine 9.5, glucose 115, calcium 8.8, phosphorus 5.3. AST 25, ALT 35, alkaline phosphatase 412, albumin 2.7. DISCHARGE MEDICATIONS: 1. Apixaban 2.5 mg p.o. b.i.d. 2. Calcium acetate 2 capsules p.o. t.i.d. 3. Dialyvite tablet 1 tablet p.o. daily. 4. Ketoralac 10 mg p.o. q. 6 hours for pain between 3 and 6 in intensity as needed. 5. Zofran 1 tablet p.o. as needed for nausea and vomiting 4 mg. 6. Oxycodone/acetaminophen 5/325 one tablet p.o. q. 6 hours as needed for pain greater than 7. 7. Prednisone 5 mg p.o. daily. 8. Propranolol 10 mg p.o. b.i.d. 9. Ropinirole 0.5 mg p.o. at bedtime. 10. Sertraline 100 mg p.o. daily. TIME SPENT: Time discharging this patient and discussing the case with the family at least 35 minutes. cc: Sawyer Dallas MD
== END 2019-05-11 18:52 | disposition home or self-care (01) | DRG 417 ==
LOC: P.ED 08:21 → P.EDIPHOLD 14:47 → SUATTDRO 14:47
PROVIDERS: ATTEND Internal Medicine

== ENCOUNTER 2019-08-10 06:10 | Inpatient (IN) ==
[2019-08-10 07:02] LABS: BASO# 0.01 X1000 (0.0-0.2); BASO% 0.1 % (0.0-0.8); EOS# 0.26 X1000 (0.0-0.7); HEMATOCRIT 30.1 % (42.0-52.0); IMM GRAN# 0.04 X1000 (0.0-0.04); IMM GRAN% 0.3 % (0.0-0.5); LYMPH# 1.62 X1000 (1.2-3.4); LYMPH% 12.2 % (20.5-51.1); MCH 22.1 PG (27-31); MCHC 29.9 g/dL (33-37); MCV 73.8 FL (81-99); MONO# 1.19 X1000 (0.11-0.59); MPV 10.1 FL (7.4-10.4); NEUT# 10.17 X1000 (1.4-6.5); NEUT% 76.4 % (42.2-75.2); PLT 314 X1000 (130-400); RBC 4.08 XMIL (4.7-6.1); RDW 22.2 % (11.5-14.5); WBC 13.29 X1000 (4.8-10.8)
--- NOTE | 2019-08-10 07:02 | EKG Report ---
Test Performed on : 08/10/2019 06:16:54 AM Test Reason : chest pain Blood Pressure : / mmHG Vent. Rate : 119 BPM Atrial Rate : 119 BPM P-R Int : 142 ms QRS Dur : 082 ms QT Int : 312 ms P-R-T Axes : 050 036 028 degrees QTc Int : 438 ms Sinus tachycardia. Possible Left atrial enlargement Borderline ECG When compared with ECG of 03-MAY-2019 11:03, No significant change was found Unconfirmed Result
--- NOTE | 2019-08-10 07:29 | Diag Imaging Result Doc PS360 ---
EXAM: CHEST-2 VIEWS HISTORY: chest pain TECHNIQUE: Two views COMPARISON: 05/03/2019 FINDINGS: The lungs are well expanded except for minimal basilar atelectasis. The heart is not enlarged. There is a right-sided aortic arch. The vessels are not distended. There are no infiltrates. Tiny pleural effusions. IMPRESSION: Tiny pleural effusions with minimal basilar atelectasis Electronically signed by Alvin Sewell 08/10/2019 7:26 AM
[2019-08-10] MEDS ORDERED: MORPHINE IV ONE (08:42)
[2019-08-10] MEDS ORDERED: NS 1,000 ML IV ONE (08:43)
[2019-08-10 08:57] LABS: CREATININE 15.1 mg/dL (0.7-1.2)
[2019-08-10 08:58] LABS: ALB/GLOB RATIO 0.9; ALBUMIN 3.1 g/dL (3.5-5.0); TOTAL BILIRUBIN 0.3 mg/dL (0.20-1.00); TOTAL PROTEIN 6.6 g/dL (6.3-8.3)
--- NOTE | 2019-08-10 09:01 | Diag Imaging Result Doc PS360 ---
EXAM: CT ABD/PELVIS W/IV CONT ONLY HISTORY: ABD pain TECHNIQUE: CT abdomen and pelvis with intravenous contrast COMPARISON: 04/09/2018 FINDINGS: Tiny left pleural effusion with basilar atelectasis. The gallbladder has been removed. There is fatty infiltration of the liver. Normal spleen and adrenal glands. Stable tiny pancreatic cyst. No inflammation about the pancreas or pancreatic calcifications. There is a right lower quadrant transplanted kidney. There are multiple right renal stones. Mild dilatation to the renal pelvis. No inaja kidneys identified. Severe atherosclerosis. No aortic aneurysm. Nonspecific mild inflammation in the mid mesentery with small scattered mesenteric nodes. No bowel obstruction. There are sigmoid sutures. Normal prostate. Urinary bladder is only minimally distended. There is a small amount of free fluid within the pelvis. Small fat filled right paraumbilical hernia. Dystrophic calcifications in the lower quadrants may be related to the patient's inaja kidneys. These are unchanged. IMPRESSION: 1.Tiny left pleural effusion 2.Cholecystectomy 3.There is fatty infiltration of the liver 4.Stable pancreatic cyst 5.Severe atherosclerosis 6.Right lower quadrant transplanted kidney with nephrolithiasis 7.Trace fluid in the pelvis. This has decreased. 8.Nonspecific mesenteric inflammation, but no abscess. This exam was performed using automated exposure control, adjustment of mA or kV according to patient size, and/or use of iterative reconstruction technique. Electronically signed by Alvin Sewell 08/10/2019 8:58 AM
[2019-08-10] MEDS ORDERED: FLAGYL 500 MG/NS 500 MG/100 ML IVPB IV ONE (10:27)
[2019-08-10] MEDS ORDERED: CIPRO 400 MG/D5W 400 MG/200 ML IVPB IV ONE (10:27)
[2019-08-10] MEDS ORDERED: MORPHINE ONE (10:41)
[2019-08-10 11:40] LABS: AMYLASE 76 U/L (20-200); LIPASE 36 U/L (13-60)
[2019-08-10 11:44] LABS: INR 1.37; PROTIME 17.1 Seconds (11.0-16.0)
--- NOTE | 2019-08-10 11:51 | PROVIDER DOCUMENTATION ---
HPI-Abdominal Pain/GI Problem - General Chief Complaint: SEPSIS ALERT - D Stated Complaint: CP, FEVER KIDNEY TRANSPLANT PT Time Seen by Provider: 08/10/19 06:47 Source: patient Allergies/Adverse Reactions: Patient Allergies Allergy/AdvReac Type Severity Reaction Status Date / Time lisinopril [From Prinivil] Allergy Severe extreme Verified 08/10/19 08:33 decrease in BP erythromycin base Allergy Unknown Unknown Verified 08/10/19 08:33 [Erythromycin Base] NSAIDS (Non-Steroidal Allergy Unknown Verified 08/10/19 08:33 Anti-Inflamma meperidine [From Demerol] AdvReac Severe Unknown Verified 08/10/19 08:33 Home Medications: Home Medication List Medication Instructions Recorded Confirmed Last Taken Type ATORVAstatin [Lipitor] 10 mg PO DAILY 08/10/19 08/10/19 Unknown History Calcium Acetate 2 cap PO AC 08/10/19 08/10/19 Unknown History Cholecalciferol (Vit D3) [Vitamin 5,000 unit PO DAILY 08/10/19 08/10/19 Unknown History D3] Cinacalcet HCl [Sensipar] 60 mg PO EVERY OTHER DAY 08/10/19 08/10/19 Unknown History Docusate Sodium [Colace] 100 mg PO BID PRN PRN 08/10/19 08/10/19 Unknown History Duloxetine [Cymbalta] 30 mg PO DAILY 08/10/19 08/10/19 Unknown History Folic Acid/Vit B Complex and C 1 ea PO QHS 08/10/19 08/10/19 Unknown History [Dialyvite Tablet] Gabapentin [Neurontin] 300 mg PO DAILY 08/10/19 08/10/19 Unknown History Hydrocodone/Acetaminophen [[place] 1 ea PO BID PRN PRN 08/10/19 08/10/19 Unknown History 7.5-325 Tablet] Iron Sucrose Complex [Venofer] 0 mg IV DIRECTED 08/10/19 08/10/19 Unknown History Omeprazole 40 mg PO DAILY 08/10/19 08/10/19 Unknown History Ondansetron HCl [Zofran] 8 mg PO Q6-8H PRN PRN 08/10/19 08/10/19 Unknown History Polyethylene Glycol 3350 [Miralax] 17 gm PO DAILY PRN 08/10/19 08/10/19 Unknown History Prednisone 5 mg PO DAILY 08/10/19 08/10/19 Unknown History Ropinirole HCl 0.5 mg PO DAILY 08/10/19 08/10/19 Unknown History - History of Present Illness-ABD Abdominal Pain Onset Location: reports: RUQ, LUQ, epigastric Pain Radiation: reports: no radiation Quality of Pain: reports: cramping, sharp Severity in ED: reports: moderate, severe Onset/Duration: reports: gradual, 3 days ago Timing: reports: still present, intermittent Activities at Onset: reports: none Exposure to sick contacts?: No Modifying Factors: improves with: nothing Associated Symptoms: reports: anxiety, fever/chills, heartburn, nausea. denies: arm pain, chest pain, constipation, cough, diarrhea, dizziness, sinus congestion/drainage, rash, shortness of breath, vomiting, trouble walking Last BM: last night Dark Stools Present?: reports: none noticed Rectal Bleeding: reports: none Rectal Pain: reports: none Emesis Description: reports: none Similar Symptoms Previously?: Yes Recently seen or treated by another doctor?: No Review of Systems - Adult - REVIEW OF SYSTEMS - ADULT Constitutional: reports: fever Eyes: denies: no symptoms reported Ears, Nose, Mouth & Throat: denies: no symptoms reported Cardiovascular: reports: see HPI Respiratory: reports: see HPI Gastrointestinal: reports: see HPI Genitourinary: denies: no symptoms reported Musculoskeletal: denies: no symptoms reported Integumentary: denies: no symptoms reported Neurological: denies: no symptoms reported Psychiatric: denies: no symptoms reported Endocrine: denies: no symptoms reported Hematologic/Lymphatic: denies: no symptoms reported Allergic/Immunologic: denies: no symptoms reported Past History - Adult - PAST MEDICAL HISTORY-ADULT Review of Records: reports: Old Records Reviewed, Nursing Assessment Review, Med ications Reviewed, Social history reviewed & non-contributory. Major Childhood Illnesses: reports: denies history Cardiovascular: denies: arrhythmia, CAD, CHF, palpitations, pericardial disease Respiratory: reports: denies history Gastrointestinal: reports: other (colostomy reduced) Genitourinary: reports: ESRD, kidney disease Musculoskeletal: reports: denies history Neurological: reports: denies history Psychiatric: reports: denies history Physical Exam-General - PHYSICAL EXAM-ADULT Initial Vital Signs Reviewed: Yes - CONSTITUTIONAL General Appearance: appears well, alert, no apparent distress - EYES Eyes: PERRL/EOMI, pink conjunctivae - HEAD, EARS, NOSE, MOUTH & THROAT HENMT: normocephalic/atraumatic, moist mucous membranes, pharynx normal - NECK Neck: supple, normal inspection - RESPIRATORY Respiratory: lungs clear, normal breath sounds, no respiratory distress, no accessory muscle use - CARDIOVASCULAR Cardiovascular: regular rate, rhythm, systolic murmur - GASTROINTESTINAL (ABDOMEN) Abdominal Exam: normal bowel sounds, soft, tenderness (generalized, mostly in upper abd) - MUSCULOSKELETAL Back Exam: no CVA tenderness, no vertebral tenderness Extremity: no pedal edema, no calf tenderness Peripheral Pulses: radial (R): 2+, radial (L): 2+ - SKIN Integumentary: normal color, warm/dry - NEUROLOGIC Neurologic: grossly normal - PSYCHIATRIC Psych/Mental Status: normal mood/affect, normal thought content, normal thought process, oriented x 3 Progress - PLAN OF CARE/RESULTS Progress/Plan/Lab Results: Vital Signs - 8 hr 08/10/19 06:13 08/10/19 06:24 08/10/19 06:32 Temperature 99.0 F Pulse Rate 117 H 124 H 123 H Respiratory Rate 20 19 22 Blood Pressure 145/94 134/93 126/88 O2 Sat by Pulse Oximetry 94 L 94 L 96 08/10/19 07:33 08/10/19 08:00 08/10/19 08:02 Temperature 99.2 F Pulse Rate 127 H 120 H Respiratory Rate 32 H 25 H Blood Pressure 129/93 125/88 O2 Sat by Pulse Oximetry 95 93 L 08/10/19 08:48 08/10/19 09:00 08/10/19 09:15 Temperature Pulse Rate 114 H 119 H 112 H Respiratory Rate 34 H 24 22 Blood Pressure O2 Sat by Pulse Oximetry 94 L 92 L 92 L 08/10/19 09:30 08/10/19 09:45 08/10/19 10:00 Temperature Pulse Rate 115 H 115 H 112 H Respiratory Rate 23 30 H 16 Blood Pressure O2 Sat by Pulse Oximetry 92 L 93 L 90 L 08/10/19 10:15 08/10/19 10:30 08/10/19 10:32 Temperature Pulse Rate 120 H 115 H Respiratory Rate 18 19 Blood Pressure 111/84 O2 Sat by Pulse Oximetry 93 L 92 L 93 L 08/10/19 10:47 08/10/19 11:02 08/10/19 11:39 Temperature 98.4 F Pulse Rate 111 H 105 H Respiratory Rate 19 18 Blood Pressure 111/84 114/73 O2 Sat by Pulse Oximetry 93 L 94 L Laboratory Results - last 24 hr 08/10/19 08/10/19 08/10/19 06:39 06:39 06:39 WBC 13.29 H RBC 4.08 L Hgb 9.0 L Hct 30.1 L MCV 73.8 L MCH 22.1 L MCHC 29.9 L RDW Std Deviation 22.2 H Plt Count 314 MPV 10.1 Immature Gran % (Auto) 0.3 Neut % (Auto) 76.4 H Lymph % (Auto) 12.2 L Wise % (Auto) 9.0 Eos % (Auto) 2.0 Baso % (Auto) 0.1 Immature Gran # (Auto) 0.04 Neut # (Auto) 10.17 H Lymph # (Auto) 1.62 Wise # (Auto) 1.19 H Eos # (Auto) 0.26 Baso # (Auto) 0.01 Sodium 138 Potassium 5.0 Chloride 94 L Carbon Dioxide 18 L Anion Gap 26 BUN 91 H Creatinine 15.1 H* Estimated GFR/1.73 m2 4 BUN/Creatinine Ratio 6 Glucose 91 Calculated Osmolality 303 Calcium 8.0 L Total Bilirubin 0.30 AST 14 ALT 7 L Alkaline Phosphatase 186 H Troponin T 0.013 Total Protein 6.6 Albumin 3.1 L Globulin 3.5 Albumin/Globulin Ratio 0.9 Amylase Lipase Plasma Lactate 08/10/19 08/10/19 08/10/19 08:50 10:59 10:59 WBC RBC Hgb Hct MCV MCH MCHC RDW Std Deviation Plt Count MPV Immature Gran % (Auto) Neut % (Auto) Lymph % (Auto) Wise % (Auto) Eos % (Auto) Baso % (Auto) Immature Gran # (Auto) Neut # (Auto) Lymph # (Auto) Wise # (Auto) Eos # (Auto) Baso # (Auto) Sodium Potassium Chloride Carbon Dioxide Anion Gap BUN Creatinine Estimated GFR/1.73 m2 BUN/Creatinine Ratio Glucose Calculated Osmolality Calcium Total Bilirubin AST ALT Alkaline Phosphatase Troponin T 0.012 Total Protein Albumin Globulin Albumin/Globulin Ratio Amylase 76 Lipase 36 Plasma Lactate 0.7 Orders Category Date Time Status Cardiac Monitoring DIRECTED Care 08/10/19 07:49 Active IV Insertion ORDERED Care 08/10/19 07:49 Completed Notify MD of + Sepsis Screen NOW Care 08/10/19 07:49 Active Notify Physician As Ordered Care 08/10/19 07:49 Active CHEST-2 VIEWS [RAD] Stat Exams 08/10/19 06:[address] ABD/PELVIS W/IV CONT ONLY [CT] Stat Exams 08/10/19 07:47 Completed AMYLASE [CHEM] Stat Lab 08/10/19 10:59 Completed BLOOD CULTURE [BLDCUL] Stat Lab 08/10/19 08:56 Results CBC WITH ELECTRONIC DIFF [HEME] Stat Lab 08/10/19 06:39 Completed CK PROFILE [SP CHEM] Stat Lab 08/10/19 10:59 Received COMPREHENSIVE METABOLIC PANEL [CHEM] Stat Lab 08/10/19 06:39 Completed LACTATE, PLASMA [CHEM] Lab 08/10/19 08:50 Completed LACTATE, PLASMA [CHEM] Lab 08/10/19 10:59 Received LACTATE, PLASMA [CHEM] Lab 08/10/19 14:00 Uncollected LIPASE [CHEM] Stat Lab 08/10/19 10:59 Completed PROTIME WITH INR [COAG] Stat Lab 08/10/19 10:59 Received PTT [COAG] Stat Lab 08/10/19 10:59 Received TROPONIN T Stat Lab 08/10/19 06:39 Completed TROPONIN T Stat Lab 08/10/19 10:59 Completed 0.9% Sodium Chloride Inj [Ns] 1,000 ml Med 08/10/19 08:43 Discontinued IV 999 mls/hr Ciprofloxacin 400 mg/D5w [Cipro 400 mg/D5w] Med 08/10/19 10:27 Discontinued 400 mg in 200 ml IV NOW Metronidazole 500 mg/Ns [Flagyl 500 mg/Ns] Med 08/10/19 10:27 Discontinued 500 mg in 100 ml IV NOW Morphine Med 08/10/19 10:41 Discontinued 2 mg .ROUTE .STK-MED ONE Morphine Med 08/10/19 08:42 Discontinued 2 mg IV NOW ONE CP/Palp <45 No Known Cardiac Hx Stat Oth 08/10/19 06:23 Ordered Oxygen Device Stat Oth 08/10/19 07:49 Active EKG [EKG] Stat Ther 08/10/19 06:24 Draft Result Diagrams: 08/10/19 06:39 08/10/19 06:39 - CONSULTS/PCP/HOSPITALIST Notification #1 *Consult/PCP/Hospitalist*: FRAN Bonds for Hospitalist Time Discussed: 13:12 Consult Disposition: Will see in ED, Admit #2 Consult: Dr Verdugo Time Discussed: 13:20 Consult Disposition: Admit Departure - Departure Date of Disposition Decision: 08/10/19 Time of Disposition Decision: 13:28 DIAGNOSIS: Abdominal pain Disposition: ADMITTED INPATIENT 09 Certified Medical Emergency: Emergent Condition: Stable Referrals and Follow-Ups: Edmundo Tomlin MD [Primary Care Provider] - - Critical Care Note This patient required my direct & personal management of CC.: No Attestation - Physician/ EDELMIRA Attestation Patient care was provided by Advanced Practice Provider:: No The physician spent face to face time with patient:: Yes Advanced Practice Provider documentation review:: Supervising physician onsite and consulted in the evaluation and care of this patient. The physician did have a face to face encounter with the patient.
[2019-08-10] MEDS ORDERED: NS 2,000 ML MISC PRN (14:34)
--- NOTE | 2019-08-10 18:50 | HISTORY AND PHYSICAL ---
CHIEF COMPLAINT: Epigastric pain, right upper quadrant pain, fever, nausea. HISTORY OF PRESENT ILLNESS: This is a 43-year-old gentleman with a prior history of end-stage renal disease stage 5 status post renal transplant x3 now on Saturday, Saturday, Saturday hemodialysis, chronic immunosuppression, hypertension, who presented to the emergency room complaining of fever as high as 101 with bilateral upper quadrant epigastric and right-sided pain. He describes this pain as a sharp, cramping type pain. It has been started about 3 days ago. It has remained intermittent. He has had some heartburn and nausea accompanying it. He denied any vomiting, any black or bloody vomitus or stools. Workup in the emergency room showed a WBC of 13.2 with a creatinine of 15, BUN 91. CT of the abdomen revealed nonspecific mesenteric inflammation but no abscess with a tiny left pleural effusion, fatty infiltration of the liver and a stable pancreatic cyst. PAST MEDICAL HISTORY: End-stage renal disease on Saturday, Saturday, Saturday dialysis, chronic immunosuppression secondary to renal transplant x3, history of right lower extremity DVT, chronic bilateral lower extremity edema, hypertension. PAST SURGICAL HISTORY: Renal transplant x3, left inguinal hernia and umbilical hernia repair, bilateral hip replacements, colostomy placement and revision. SOCIAL HISTORY: He lives with family members. Denies alcohol, tobacco or illicit drug use. ALLERGIES: Lisinopril, erythromycin and iron. HOME MEDICATIONS: A list will be obtained by the nursing staff and once verified will review and restart as appropriate. REVIEW OF SYSTEMS: Discussed with patient with pertinent positives stated in the HPI. He denied any syncope or dizziness, any palpitations, any shortness of breath, cough, fever, chills, night sweats, any vomiting, diarrhea, constipation, black or bloody vomitus or stools. PHYSICAL EXAM: This is a 43-year-old gentleman who is receiving dialysis at this time and is in no distress. VITAL SIGNS: Blood pressure is 130/82 with a heart rate of 100, respirations are 20, temperature is 98.4 degrees with O2 saturations 95%. HEENT: Pupils are equal, round, react to light. EOMs are intact. Sclerae anicteric. Head is normocephalic, atraumatic. Mucous membranes are moist. NECK: Supple with trachea midline. CARDIOVASCULAR: Regular rate and rhythm. S1 and S2 appreciated. Systolic murmur is noted. Has bilateral lower extremity edema which he states is chronic and stable. Calves are nontender bilateral. PULMONARY: Breath sounds are clear with no increased work of breathing noted. Chest rise falls symmetric respiration. Chest wall is nontender to palpation.. GASTROINTESTINAL: Abdomen is soft. He does have some generalized tenderness particularly in the epigastric right upper quadrant to right outer midquadrant. Bowel sounds are present in all quadrants. NEUROLOGIC: He is alert and oriented x3. SKIN: Warm and dry. LABS: WBC is 13 with hemoglobin of 9, hematocrit 30.1 and platelets of 314,000. Sodium is 138, potassium 5, BUN 91, creatinine 15 with a glucose 91, alkaline phosphatase is 186. Troponins are 0.013 and 0.012. Amylase 76, lipase 36. Blood cultures are pending. Chest x- ray revealed tiny pleural effusions with minimal basilar atelectasis . CT of the abdomen and pelvis with IV contrast revealed tiny left pleural effusion, cholecystectomy with fatty infiltration of the liver, stable pancreatic cyst, severe atherosclerosis, right lower quadrant transplanted kidney with nephrolithiasis, trace fluid in the pelvis which is decreased compared to March 2018, nonspecific mesenteric inflammation but no abscess. EKG revealed sinus tach at a rate of 119. Blood cultures are pending. ASSESSMENT AND PLAN: 1. Abdominal pain, epigastric pain. 2. Mesenteric inflammation. 3. Leukocytosis. 4. Reported fever. 5. End-stage renal disease stage 5 status post transplant x3 currently on Saturday, Saturday, Saturday hemodialysis. 6. Hypertension. 7. Anemia of chronic disease. 8. History of lower extremity deep vein thrombosis on Eliquis. PLAN: The patient is currently receiving dialysis. He will be admitted to the hospital. Will identify his home medications and continue these as is appropriate. Will consult Dr. Verdugo. Blood cultures have been obtained, start Flagyl 500 mg IV q.8 hours and Rocephin 2 g q.24 hours and any further antibiotics will be culture driven. Will check a renal profile daily, CBC daily, recheck a KUB in the morning. He will be on strict I and O with telemetry. For DVT prophylaxis will use SCDs, GI prophylaxis omeprazole. Plan was discussed with Dr Farmer. Further treatments pending hospital course. Dictated by FRAN Molina for Reese Farmer MD cc: FRAN Molina patient with abdominal pain. CT with only nonspecific findings but he's quite tender on exam. will place on empiric antibiotics and see how he does overnight. may end up needing surgical consult. SHANNAN
[2019-08-10] MEDS: ROCEPHIN 2 GM in NS 50 ML IV SCH (19:11)
[2019-08-10] MEDS: FLAGYL 500 MG/NS 500 MG/100 ML IVPB IV SCH (19:11)
[2019-08-10] MEDS: NORCO-7.5 PO PRN (21:03)
[2019-08-10] MEDS: LIPITOR PO SCH (21:04)
[2019-08-10] MEDS: ZOFRAN IV PRN (21:04)
[2019-08-11] MEDS: FLAGYL 500 MG/NS 500 MG/100 ML IVPB IV SCH ×3 (01:50→16:51)
[2019-08-11] MEDS ORDERED: NS 500 ML IV ONE (02:28)
[2019-08-11] MEDS: TYLENOL PO PRN ×2 (04:13→16:57)
[2019-08-11] MEDS: PRILOSEC PO SCH (06:20)
[2019-08-11] MEDS: NORCO-7.5 PO PRN ×2 (06:20→19:41)
[2019-08-11] MEDS: PHOSLO PO SCH ×3 (06:20→16:51)
[2019-08-11 06:31] LABS: HEMATOCRIT 30.9 % (42.0-52.0); HEMOGLOBIN 9.3 g/dL (14.0-18.0); MCH 22.4 PG (27-31); MCHC 30.1 g/dL (33-37); MCV 74.5 FL (81-99); MPV 10.5 FL (7.4-10.4); RBC 4.15 XMIL (4.7-6.1); RDW 22.9 % (11.5-14.5); WBC 7.93 X1000 (4.8-10.8)
[2019-08-11 06:48] LABS: CALCIUM 8.3 mg/dL (8.8-10.2); PHOSPHORUS 7.4 mg/dL (2.7-4.5); POTASSIUM 5.4 mmol/L (3.5-5.1)
[2019-08-11] MEDS: NEURONTIN PO SCH (08:02)
[2019-08-11] MEDS: ZOFRAN IV PRN ×2 (08:02→22:19)
[2019-08-11] MEDS: CYMBALTA PO SCH (08:02)
[2019-08-11] MEDS: PREDNISONE PO SCH (08:02)
--- NOTE | 2019-08-11 09:11 | Diag Imaging Result Doc PS360 ---
KUB ABDOMEN - 08/11/2019 INDICATION: abdominal pain. COMPARISON: 05/03/2019 FINDINGS: Stable surgical clips in the right lower side of the abdomen and right side of the pelvis. Stable fixation screws through the femoral necks bilaterally. No bowel obstruction or free air. Stable calcifications or densities projecting over the pelvis bilaterally. IMPRESSION: No acute disease. Electronically signed by Gumaro Hurt 08/11/2019 9:09 AM
--- NOTE | 2019-08-11 11:35 | NEPHROLOGY CONSULTATION ---
DATE: 08/10/2019 CONSULTING PHYSICIAN: Dr. Hernández in the emergency room. REASON FOR CONSULTATION: Assistance with management of sepsis and renal failure. HISTORY OF PRESENT ILLNESS: Mr. Hdz is a 43-year-old white male who is known to me. He has had a history of renal transplantation, but has been back on dialysis about 1 year following an episode of abdominal sepsis that required a colectomy. He has since undergone reanastomosis. He has actually been doing well, but in the last several days has had of worsening abdominal pain, fever such that he missed his dialysis treatment on Saturday, nausea. No vomiting. No diarrhea mentioned. Because of his worsening symptoms, he came to the emergency room today instead of going to his outpatient dialysis appointment. Sharp, crampy midepigastrium and extending across the mid abdomen. Unable to eat. PAST MEDICAL HISTORY: As above. Also has a history of DVT, hypertension. HOME MEDICATIONS: Include PhosLo, vitamin D, docusate, duloxetine, Dialyvite, hydrocodone, Venofer, omeprazole, ondansetron, MiraLAX, prednisone, ropinirole, atorvastatin, cinacalcet, gabapentin. ALLERGIES: Lisinopril and erythromycin. SOCIAL HISTORY: , lives with his . No alcohol or tobacco. FAMILY HISTORY: Otherwise noncontributory. REVIEW OF SYSTEMS: Otherwise noncontributory. PHYSICAL EXAMINATION: Vital Signs: Blood pressure 125/80, heart rate 102, respirations 22, afebrile. General: Ill-appearing, but no acute distress. Skin: Warm and dry. HEENT: Conjunctivae are pink. Pupils are equal. Oropharynx is clear. Neck: Neck veins are not distended. Heart: Regular. No gallops. PMI nondisplaced. Lungs: Equal breath sounds. No crackles or wheezes. Abdomen: Diffusely tender, but soft. No organomegaly. No guarding, except for voluntary guarding. Decreased bowel sounds. Extremities: No edema, clubbing, or cyanosis. IMPRESSION: Abdominal pain. Etiology is not obvious. CT with "nonspecific mesenteric inflammation." We should probably have the surgeons evaluate him. Continue antibiotics as ordered. He is on dialysis currently. Electrolytes/acid base/anemia all acceptable. cc: Ray Verdugo MD
--- NOTE | 2019-08-11 15:22 | PROGRESS NOTE ---
DATE: 08/11/2019 INTERVAL HISTORY: Patient still with some right-sided abdominal pain, now more in the right lower quadrant, but is much improved from previous. No fever, chills, nausea, vomiting, diarrhea. No other acute events. No new complaints. LABS: WBC 17.9, hemoglobin 9.3, hematocrit 30.9, platelets 276,000. Sodium 140, potassium 5.4, BUN 51, creatinine 10, calcium 8.3, phosphorus 7.4, albumin 3. VITAL SIGNS: T-max 99.7 degrees, pulse 99, respirations 18, blood pressure 94/63, O2 saturation 97% on room air. PHYSICAL EXAMINATION: General: No acute distress. Vital signs: As above. HEENT: Normocephalic, atraumatic. Moist mucous membranes. No cervical adenopathy. Cardiovascular: Regular rate and rhythm. No murmurs noted. Pulmonary: Clear to auscultation bilaterally. Abdomen: Soft. Moderate right lower quadrant tenderness to palpation without rebound or guarding, much improved from yesterday. Bowel sounds positive. Extremities: Peripheral pulses intact. No clubbing, cyanosis. Neurologic: Cranial nerves grossly intact. No focal deficits identified. Psychiatric: Normal mood and affect. Awake, alert, and oriented x3. ASSESSMENT AND PLAN: 1. Abdominal pain with reported fever at home. No fevers since he has been here. Was placed on empiric antibiotics with Flagyl and Rocephin. CT not showing any clear sign of infection, although it did show this odd mesenteric inflammation of uncertain significance. The patient's tenderness is much improved today but still present. Leukocytosis resolved. Given significant tenderness yesterday and still some today and nonspecific CT findings, will ask for surgery's opinion. Continue antibiotics for now, although at the current time I am not really seeing a clear source of bacterial infection. 2. End-stage renal disease, status post dialysis yesterday. Nephrology following. Monitor labs. He had missed a dialysis day. 3. Fatty liver. Monitor. 4. Chronic steroid use. Continue steroids. 5. Hypertension. Blood pressure has been largely low normal here so we are not giving any blood pressure medication currently.
--- NOTE | 2019-08-11 16:24 | GENERAL SURGERY CONSULTATION ---
DATE: 08/11/2019 CHIEF COMPLAINT: Abdominal pain. HISTORY: This is a 43-year-old gentleman that I have known in the past. I performed a laparoscopic cholecystectomy on him on April. He now has admitted with some vague abdominal discomfort. CT scan suggests some mesenteric inflammation but no other discrete abnormalities. He has a history of chronic kidney disease, stage 5. Three attempts at transplantation but now is back on chronic hemodialysis. He has had multiple abdominal surgeries. He had a previous colostomy and colostomy reversal prior to his cholecystectomy. Other past medical problems include right lower extremity DVT, chronic bilateral lower extremity edema and hypertension. PREVIOUS SURGERY: Includes the renal transplant x3, left inguinal hernia repair, umbilical hernia repair, bilateral hip replacement, placement of a colostomy and takedown, and then the laparoscopic cholecystectomy. SOCIAL HISTORY: He lives with his family members. Denies alcohol, tobacco or illicit drug use. MEDICATIONS: Listed ALLERGY: Lisinopril, erythromycin and iron. REVIEW OF SYSTEMS: Negative in all subsystems in all 12 subsystems except as noted above. PHYSICAL EXAMINATION: Vital Signs: He is afebrile. Heart rate 99, respiratory rate 18, blood pressure 94/63. Neck: No cervical adenopathy. Lungs: Clear. Heart: Regular rate and rhythm. Abdomen: Soft and really nontender. Bowel sounds are present. He has been taking p.o. intake. LABORATORY DATA: Reveals a white got down to 7900, hemoglobin 9.3. ASSESSMENT: Mild mesenteric inflammation which seems to be improved with antibiotic therapy. His is certainly less tender. No operative intervention is recommended. cc: Ney Matute MD
[2019-08-11] MEDS: ROCEPHIN 2 GM in NS 50 ML IV SCH (16:51)
[2019-08-11] MEDS: LIPITOR PO SCH (20:37)
[2019-08-12] MEDS: FLAGYL 500 MG/NS 500 MG/100 ML IVPB IV SCH ×2 (00:46→10:17)
[2019-08-12] MEDS: PRILOSEC PO SCH (06:03)
[2019-08-12] MEDS: PHOSLO PO SCH ×2 (06:03→16:35)
[2019-08-12] MEDS: NORCO-7.5 PO PRN (06:05)
[2019-08-12 07:00] LABS: CALCIUM 8.7 mg/dL (8.8-10.2); PHOSPHORUS 7.9 mg/dL (2.7-4.5); POTASSIUM 4.8 mmol/L (3.5-5.1)
[2019-08-12 07:57] LABS: CREATININE 12.1 mg/dL (0.7-1.2)
[2019-08-12 08:11] VITALS: BP 117/69
[2019-08-12] MEDS ORDERED: CINACALCET HCL 60 MG PO SCH (09:00)
[2019-08-12 09:35] LABS: BASO# 0.02 X1000 (0.0-0.2); BASO% 0.2 % (0.0-0.8); EOS# 0.48 X1000 (0.0-0.7); EOS% 5.4 % (0.0-10.0); HEMATOCRIT 30.6 % (42.0-52.0); IMM GRAN# 0.02 X1000 (0.0-0.04); IMM GRAN% 0.2 % (0.0-0.5); LYMPH# 1.14 X1000 (1.2-3.4); LYMPH% 12.9 % (20.5-51.1); MCH 21.8 PG (27-31); MCHC 29.4 g/dL (33-37); MCV 74.3 FL (81-99); MONO# 0.67 X1000 (0.11-0.59); MONO% 7.6 % (1.7-9.3); MPV 10.1 FL (7.4-10.4); NEUT# 6.54 X1000 (1.4-6.5); NEUT% 73.7 % (42.2-75.2); PLT 330 X1000 (130-400); RBC 4.12 XMIL (4.7-6.1); RDW 22.3 % (11.5-14.5); WBC 8.87 X1000 (4.8-10.8)
[2019-08-12 09:56] LABS: ANISOCYTOSIS 1+; BANDS 2 % (0-1); EOS 2 % (1-10); HYPOCHROM 2+; LYMPHS 10 % (21-51); MICROCYTOSIS 2+; MONO 2 % (1-9); SEGS 84 % (42-75)
[2019-08-12] MEDS ORDERED: LEVAQUIN PO SCH (10:00)
[2019-08-12] MEDS: CYMBALTA PO SCH (10:18)
[2019-08-12] MEDS: PREDNISONE PO SCH (10:18)
[2019-08-12] MEDS: NEURONTIN PO SCH (10:20)
--- NOTE | 2019-08-12 14:12 | DISCHARGE SUMMARY ---
ADMISSION DATE: 08/10/2019 DISCHARGE DATE: 08/12/2019 DIAGNOSES: 1. Abdominal pain with reported fever at home in a patient with a T-max of 99.2 degrees during the hospitalization. 2. End-stage renal disease status post renal transplant back on hemodialysis after having experienced abdominal sepsis requiring a colectomy with resulting reanastomosis. 3. Fatty liver, aware. 4. Chronic steroid use secondary to renal transplant. 5. Hypertension. CONSULTS: 1. Dr. Ray Verdugo. 2. Dr. Ney Matute. DIAGNOSTICS: 1. Chest x-ray revealed tiny pleural effusions with minimal basilar atelectasis. 2. CT of the abdomen and pelvis tiny left pleural effusion, cholecystectomy, fatty infiltration of the liver, stable pancreatic cyst, right lower quadrant transplanted kidney with nephrolithiasis, nonspecific mesenteric inflammation but no abscess. 3. Abdominal x-ray revealed no acute disease. 4. Microbiology. Blood cultures x2 revealed no growth after 48 hours. HOSPITAL COURSE: Mr. Hdz presented to the emergency room complaining of crampy to sharp midepigastric pain that extended across his mid upper abdomen with reported fevers as high as 101, it had been present for 3 days prior, CT scan was read per Radiology as "nonspecific mesenteric inflammation." He was evaluated by Dr. Verdugo as well as Dr. Matute, general surgery, Dr. Matute felt no operative intervention was recommended as the patient was improving on antibiotics. He did have dialysis while in the hospital. Today he was feeling better. He is received a renal diet eating 75 to 100 percent over the last 48 hours. DISCHARGE PHYSICAL EXAM: Vital signs: Blood pressure is 117/69 with a heart rate of 98, respirations 20, temperature 98.6 degrees oral with room air saturations 94 to 97 percent. Cardiovascular: Regular rate and rhythm. S1, S2 appreciated. Calves are nontender bilateral. Pulmonary: Breath sounds are clear with no increased work of breathing noted. Chest rise falls symmetric with respiration. Gastrointestinal: Abdomen soft, nontender, nondistended. Bowel sounds in all 4 quadrants. Neurologic: He is alert and oriented x3. DISCHARGE MEDICATIONS: 1. Levaquin 750 mg p.o. daily. 2. Zofran 8 mg p.o. q.6-8 hours p.r.n. nausea. 3. Vitamin D 5000 units p.o. daily. 4. Venofer as directed at dialysis. 5. Sensipar 60 mg every other day on non dialysis days. 6. Prednisone 5 mg p.o. daily. 7. Omeprazole 40 mg p.o. daily. 8. [place] 7.5 one b.i.d. p.r.n. 9. Neurontin 300 mg p.o. daily. 10. MiraLAX 17 g p.o. daily p.r.n. constipation. 11. Lipitor 10 mg p.o. daily. 12. Cymbalta 30 mg p.o. daily. 13. Colace 100 mg p.o. b.i.d. 14. Calcium acetate 667 mg 2 caps before meals. 15. Daily Cass tablet one at bedtime FOLLOWUP: 1. Dr. Tomlin. He needs to call Saturday to set up an appointment to be seen next week. 2. Dr. Verdugo as scheduled. Hemodialysis as scheduled. He has been instructed to call to be seen sooner or return to the emergency room for any syncope, dizziness, chest pain, palpitations, temperature greater than 101 any shortness of breath, cough, fevers or chills, nausea, vomiting, diarrhea, constipation, black or bloody vomitus or stools, any recurring abdominal pain or for any questions or concerns that he may have. He is being discharged home in stable condition with family members. TIME SPENT: Greater than 30 minutes. Dictated by FRAN Molina for Reese Farmer MD cc: Edmundo Tomlin MD Patient's pain resolved. no longer tender on exam. still uncertain of the significance of this nonspecific mesenteric inflammation on CT but it seems to have resolved either spontaneously or in response to antibiotics so will continue him on a short course of oral levaquin. discharging home to follow up with pcp and nephrology. SHANNAN
== END 2019-08-12 11:12 | disposition home or self-care (01) | DRG 371 ==
LOC: ED 06:10 → 1N 17:06
PROVIDERS: ADMIT Internal Medicine; ATTEND Internal Medicine

== ENCOUNTER 2019-09-03 05:49 | Observation (INO) ==
[2019-09-03] MEDS ORDERED: NS 1,000 ML IV ONE (05:56)
--- NOTE | 2019-09-03 06:14 | Diag Imaging Result Doc PS360 ---
EXAM: CHEST-PORTABLE HISTORY: near syncope TECHNIQUE: Single view COMPARISON: 08/10/2019 FINDINGS: The lungs are well expanded. Minimal basilar scarring. The heart is not enlarged. The vessels are not distended. There are no infiltrates. No effusion identified. IMPRESSION: Negative exam. Electronically signed by Alvin Sewell 09/03/2019 6:11 AM
--- NOTE | 2019-09-03 06:29 | PROVIDER DOCUMENTATION ---
HPI-Syncope/Dizziness - General Chief Complaint: B/P Problems Stated Complaint: hypotension Time Seen by Provider: 09/03/19 05:54 Source: patient, EMS Allergies/Adverse Reactions: Patient Allergies Allergy/AdvReac Type Severity Reaction Status Date / Time lisinopril [From Prinivil] Allergy Severe extreme Verified 09/03/19 06:37 decrease in BP erythromycin base Allergy Unknown Unknown Verified 09/03/19 06:37 [Erythromycin Base] NSAIDS (Non-Steroidal Allergy Unknown Verified 09/03/19 06:37 Anti-Inflamma meperidine [From Demerol] AdvReac Severe Unknown Verified 09/03/19 06:37 Home Medications: Home Medication List Medication Instructions Recorded Confirmed Last Taken Type ATORVAstatin [Lipitor] 10 mg PO DAILY 08/10/19 09/03/19 Unknown History Calcium Acetate 2 cap PO AC 08/10/19 09/03/19 Unknown History Cholecalciferol (Vit D3) [Vitamin 5,000 unit PO DAILY 08/10/19 09/03/19 Unknown History D] Cinacalcet HCl [Sensipar] 60 mg PO EVERY OTHER DAY 08/10/19 09/03/19 Unknown History Docusate Sodium [Colace] 100 mg PO BID PRN PRN 08/10/19 09/03/19 Unknown History Duloxetine [Cymbalta] 30 mg PO DAILY 08/10/19 09/03/19 Unknown History Folic Acid/Vit B Complex and C 1 ea PO QHS 08/10/19 09/03/19 Unknown History [Dialyvite Tablet] Gabapentin [Neurontin] 300 mg PO DAILY 08/10/19 09/03/19 Unknown History Hydrocodone/Acetaminophen [[place] 1 ea PO BID PRN PRN 08/10/19 09/03/19 Unknown History 7.5-325 Tablet] Iron Sucrose Complex [Venofer] 0 mg IV DIRECTED 08/10/19 09/03/19 Unknown History Omeprazole 40 mg PO DAILY 08/10/19 09/03/19 Unknown History Ondansetron HCl [Zofran] 8 mg PO Q6-8H PRN PRN 08/10/19 09/03/19 Unknown History Polyethylene Glycol 3350 [Miralax] 17 gm PO DAILY PRN 08/10/19 09/03/19 Unknown History Prednisone 5 mg PO DAILY 08/10/19 09/03/19 Unknown History Ropinirole HCl 0.5 mg PO DAILY 08/10/19 09/03/19 Unknown History Levofloxacin [Levaquin] 750 mg PO DAILY #5 tab 08/12/19 09/03/19 Unknown Rx - History of Present Illness-Syncope/Dizzy Nature of Presenting Problem: 43 yo male with ESRD, recently switched from HD at [facility] on q MWF to HOME DIALYSIS q , , , Sat. States he has been feeling pretty week, and this morning when walking to his ktichen became very light headed and collapsed to the floor. Lamar too weak to get up on his own. Denies any injury with fall, and there was no LOC. States blood pressure is usually around 100-100 systolic, but it will, on occasions, bottom out into the mid-70s. Sees Dr. Verdugo for nephrology. Also complains of a little sore throat, right ear pain and slight cough. Given 500ml IVF bolus en route, now states feels better Prior Episodes: reports: single episode today Onset/Duration: reports: abrupt, 1 hour ago Timing: reports: improving, constant, changing over time Position/Activity at time of episode: reports: standing Symptoms prior to episode: reports: lightheaded Duration of preceding symptoms? (mins): 5 Context: reports: collapsed, felt faint, almost passed out. denies: lost consciousness, became unresponsive, confused after event, incontinent of urine, incontinent of stool, breathing shallow, breathing stopped, lost pulse, seizure activity observed, low blood sugar Loss of Consciousness: no loss of consciousness Location of injury. (If syncope resulted in an injury.): reports: none Current Symptoms: reports: sweaty, weakness Similar symptoms previously: reports: previous diagnosis, tests, workup for same problem Recently Seen Here or By Another Healthcare Provider: No - Dizziness Severity in ED: reports: mild Dizziness Related Current/Associated Symptoms: reports: weakness, lightheaded Any recent trauma/injury?: reports: none Patient usually:: reports: walks without assistance Review of Systems - Adult - REVIEW OF SYSTEMS - ADULT Constitutional: reports: no symptoms reported Eyes: reports: no symptoms reported Ears, Nose, Mouth & Throat: reports: no symptoms reported Cardiovascular: reports: no symptoms reported Respiratory: reports: no symptoms reported Gastrointestinal: reports: no symptoms reported Genitourinary: reports: no symptoms reported Musculoskeletal: reports: no symptoms reported Integumentary: reports: no symptoms reported Neurological: reports: no symptoms reported Psychiatric: reports: no symptoms reported Endocrine: reports: no symptoms reported Hematologic/Lymphatic: reports: no symptoms reported Allergic/Immunologic: reports: no symptoms reported All Other Systems: Reviewed and Negative Past History - Adult - PAST MEDICAL HISTORY-ADULT Review of Records: reports: Old Records Reviewed, Nursing Assessment Review, Medications Reviewed, Social history reviewed & non-contributory. Major Childhood Illnesses: reports: denies history Cardiovascular: denies: arrhythmia, CAD, CHF, palpitations, pericardial disease Respiratory: reports: denies history Gastrointestinal: reports: other (colostomy reduced) Obstetrical/Gynecological: reports: denies history Genitourinary: reports: dialysis (mwf), ESRD, kidney disease Musculoskeletal: reports: denies history Neurological: reports: denies history Psychiatric: reports: denies history Endocrine/Immune: reports: denies history Other Conditions: reports: denies history - PRIOR SURGERIES/PROCEDURES Surgical/Procedure History: reports: colonoscopy, hernia repair, other - PRIOR HOSPITALIZATIONS Prior Hospitalizations: reports: for other non-related - IMMUNIZATION STATUS Childhood Immunizations: See Nurse Assessment Flu Vaccine: See Nurse Assessment - FAMILY HISTORY Family History: reviewed, not pertinent - SOCIAL HISTORY Smoking: non-smoker Substance Use: none/never Alcohol Use Frequency: rarely Living Situation: family Physical Exam-General - PHYSICAL EXAM-ADULT Initial Vital Signs Reviewed: Yes (VSSAF) - CONSTITUTIONAL General Appearance: appears well, alert, no apparent distress - EYES Eyes: PERRL/EOMI, pale conjunctivae. negative: pink conjunctivae - HEAD, EARS, NOSE, MOUTH & THROAT HENMT: normocephalic/atraumatic, normal ENT inspection, TMs normal, pharynx normal, other (lips are pale and dry). negative: moist mucous membranes - NECK Neck: non-tender, full range of motion, supple, normal inspection - RESPIRATORY Respiratory: chest non-tender, lungs clear, normal breath sounds, no pleuratic chest pain, no respiratory distress, no accessory muscle use - CARDIOVASCULAR Cardiovascular: normal peripheral pulses, regular rate, rhythm, no edema, no gallop, no JVD, no murmur - GASTROINTESTINAL (ABDOMEN) Abdominal Exam: non tender, soft, no organomegaly, no pulsatile mass - LYMPHATIC Lymphatic: no adenopathy - MUSCULOSKELETAL Back Exam: normal inspection, no vertebral tenderness. negative: decreased range of motion Extremity: normal range of motion, non-tender, normal inspection (there is an AV fistula/shunt left upper extremity with good thrill, without mass, redness, or pain), no pedal edema, no calf tenderness, normal capillary refill Peripheral Pulses: radial (R): 2+, radial (L): 1+ - SKIN Integumentary: normal turgor, warm/dry, pallor - NEUROLOGIC Neurologic: public health veterinarian II-XII nml as tested, grossly normal, no motor/sensory deficits - PSYCHIATRIC Psych/Mental Status: normal mood/affect, normal thought content, normal thought process, oriented x 3 Progress - PLAN OF CARE/RESULTS Progress/Plan/Lab Results: Orders Category Date Time Status Nursing- Obtain EKG once Care 09/03/19 05:54 Active CHEST-PORTABLE [RAD] Stat Exams 09/03/19 05:55 Completed BLOOD CULTURE [BLDCUL] Stat Lab 09/03/19 06:29 Ordered CBC WITH ELECTRONIC DIFF [HEME] Stat Lab 09/03/19 06:29 Ordered COMPREHENSIVE METABOLIC PANEL [CHEM] Stat Lab 09/03/19 06:29 Ordered DIRECT STREP Stat Lab 09/03/19 05:56 Ordered INFLUENZA SCREEN A/B Stat Lab 09/03/19 06:29 Ordered LACTATE, PLASMA [CHEM] Stat Lab 09/03/19 06:29 Ordered MAGNESIUM [CHEM] Stat Lab 09/03/19 06:29 Ordered PRO B-NATRIURETIC PEPTIDE Stat Lab 09/03/19 06:29 Ordered PROTIME WITH INR [COAG] Stat Lab 09/03/19 06:29 Ordered PTT [COAG] Stat Lab 09/03/19 06:29 Ordered TROPONIN T HIGH SENSITIVITY Stat Lab 09/03/19 06:29 Ordered TYPE & SCREEN [BBK] Stat Lab 09/03/19 06:29 Ordered phos [PHOSPHORUS] [CHEM] Stat Lab 09/03/19 06:29 Ordered 0.9% Sodium Chloride Inj [Ns] 1,000 ml Med 09/03/19 05:56 Active IV 75 mls/hr EKG [EKG] Stat Ther 09/03/19 05:54 Ordered discussed labs with patient/ in depth discussed with Dr Jung renal doctor pos: orthostaticBP [address] Pat torres 23 obs patient Result Diagrams: 09/03/19 06:25 09/03/19 06:25 - EKG 1 Time of EKG reading by physician:: 06:44 EKG Read and Signed by:: Morales Delgadillo EKG Interpretation (*Must complete 3 of following elements*): Abnormal Rate: 74 Rhythm: NSR [place]: normal QRS: other (EARLY TRANSITION, LAE) NH Interval: normal ST Wave: non-specific ST changes (PEAK T-WAVES) - CHANGE OF SHIFT REPORT (ED Provider) 1 Report Given and Care Transferred to:: Herbert Hdz Time of Transfer: 07:00 Items Pending: Labs, XRAY Results, Physician Consult/Arrival (with Kartik) Departure - Departure Date of Disposition Decision: 09/03/19 Time of Disposition Decision: 08:29 DIAGNOSIS: Orthostatic hypotension, Syncope due to orthostatic hypotension, Chronic renal failure, stage 5 Disposition: ADMITTED INPATIENT 09 Certified Medical Emergency: Emergent Condition: Stable Referrals and Follow-Ups: Edmundo Tomlin MD [Primary Care Provider] - - Critical Care Note This patient required my direct & personal management of CC.: Yes Total Time (mins): 60 (direct ptient care/stabilization /evaluation discussion with pt/ and dr Jung, Dr torres --admission) Critical Care Statement: This patient required my direct personal management to treat or rule out processes, the absence of which, could potentiallly result in sudden, clinically significant life or limb threatening deterioration. Attestation - Physician/ EDELMIRA Attestation Patient care was provided by Advanced Practice Provider:: Yes Advanced Practice Provider documentation review:: The Mid-level provider documentation, treatment plan and medical decision making was reviewed by the physician who agrees with all treatment and medical decision making by the MLP. The physician spent face to face time with patient:: Yes (direct patient care /eval/treatment) Advanced Practice Provider documentation review:: Supervising physician onsite and consulted in the evaluation and care of this patient. The physician did have a face to face encounter with the patient.
[2019-09-03 06:57] LABS: BASO# 0.05 X1000 (0.0-0.2); BASO% 0.6 % (0.0-0.8); EOS# 0.38 X1000 (0.0-0.7); EOS% 4.3 % (0.0-10.0); HEMATOCRIT 36.9 % (42.0-52.0); HEMOGLOBIN 11.2 g/dL (14.0-18.0); LYMPH# 1.64 X1000 (1.2-3.4); LYMPH% 18.7 % (20.5-51.1); MCH 22.4 PG (27-31); MCHC 30.4 g/dL (33-37); MCV 73.9 FL (81-99); MONO# 1.44 X1000 (0.11-0.59); MONO% 16.4 % (1.7-9.3); MPV 10.7 FL (7.4-10.4); NEUT# 5.28 X1000 (1.4-6.5); PLT 227 X1000 (130-400); RBC 4.99 XMIL (4.7-6.1); RDW 23.2 % (11.5-14.5); WBC 8.79 X1000 (4.8-10.8)
[2019-09-03 07:02] LABS: INR 1.08; PROTIME 14.1 Seconds (11.0-16.0)
[2019-09-03 07:03] LABS: PTT 27.8 Seconds (22.3-41.8)
[2019-09-03 07:21] LABS: ALB/GLOB RATIO 1.2; ALBUMIN 3.5 g/dL (3.5-5.0); CALCIUM 7.8 mg/dL (8.8-10.2); CREATININE 9.3 mg/dL (0.7-1.2); MAGNESIUM 2.3 mg/dL (1.5-2.7); PHOSPHORUS 6.1 mg/dL (2.7-4.5); POTASSIUM 3.8 mmol/L (3.5-5.1); TOTAL BILIRUBIN 0.35 mg/dL (0.20-1.00); TOTAL PROTEIN 6.4 g/dL (6.3-8.3)
--- NOTE | 2019-09-03 07:31 | EKG Report ---
Test Performed on : 09/03/2019 06:43:01 AM Test Reason : near syncope, hypotension Blood Pressure : / mmHG Vent. Rate : 074 BPM Atrial Rate : 074 BPM P-R Int : 148 ms QRS Dur : 094 ms QT Int : 414 ms P-R-T Axes : 047 023 027 degrees QTc Int : 459 ms Normal sinus rhythm. Possible Left atrial enlargement Borderline ECG When compared with ECG of 14-AUG-2019 21:34, (Unconfirmed) premature ventricular complexes. are no longer present QT has shortened Unconfirmed Result
--- NOTE | 2019-09-03 09:16 | HISTORY AND PHYSICAL ---
HISTORY OF PRESENT ILLNESS: Mr. Hdz was admitted on 09/03/2019. This is a 43-year-old with prior history of end-stage renal disease stage 5D, status post renal transplant x3. He has dialysis now on Tuesdays, , and Saturdays, and they are trying to transition to get home dialysis. He reports that he has felt lightheaded now for the last 2 to 3 days, and this morning he actually fell. He denies fever or chills. He went to get his teeth cleaned yesterday, and felt a little lightheaded. He got dialysis, I think he reported it was Saturday and Saturday, and they are trying to, like I said, transition him to home dialysis. He has chronic immunosuppression, hypertension. He has a history of right lower extremity DVT, chronic bilateral lower extremity edema, and hypertension. PAST SURGICAL HISTORY: Renal transplant x3, left inguinal hernia, umbilical hernia repair, bilateral hip replacement, colostomy placement and revision. SOCIAL HISTORY: He lives with his and family members. Denies alcohol or tobacco or illicit drugs. ALLERGIES: Lisinopril, erythromycin, and iron. REVIEW OF SYSTEMS: Constitutional: He denies any weight gain or loss that he is aware of. No fever of chills. HEENT: No change in visual or hearing acuity. Respiratory: No increased work of breathing or dyspnea. Cardiovascular: No chest pain or tachy palpitation. GI/: No change in his bowels. No gross hematochezia. No gross hematuria or dysuria. Musculoskeletal/Neurologic: No focal changes or complaints. Endocrinologic/Hematologic: No significant history. PHYSICAL EXAMINATION: VITAL SIGNS: Temperature 97.8 degrees, pulse 78, respirations 18, blood pressure 96/65. Sitting, pulse was 107, blood pressure 94/59; standing, pulse was 114, blood pressure 89/64; supine, pulse was 80, and blood pressure 104/65. O2 saturations were above 95%. HEENT: Pupils are equal and round. LUNGS: Clear in all lung solano. CARDIOVASCULAR: Regular rhythm and rate without murmur or S3. ABDOMEN: Soft. SKIN: Warm and dry. IMAGING AND LABORATORY DATA: White count 8790, hematocrit is 36, platelet count is 227,000. Sodium 138, potassium 3.8, chloride 96, BUN 56, creatinine 9.3. Liver enzymes, transaminases: AST was 18, ALT was 12, alkaline phosphatase 171. Troponin was 73. ProBNP 2872. Albumin was 3.5. ProTime 14.1. Chest x-ray: Negative exam. No infiltrate. ASSESSMENT AND PLAN: 1. End-stage renal disease. He is status post transplant x3 with renal failure, and trying to transition him to home hemodialysis. He appears to have just orthostatic hypotension. I think we will have to give him some fluid back. Will get Dr. Verdugo to direct that. I do not know how much fluid he wants to return, but we will give him normal saline, and will run it in at 85 mL an hour for right now. He is on immunosuppressive medications, or he was. I guess he is off of those at this point, but he is taking his Sensipar 60 mg every other day. 2. History of hypertension. Obviously, that is not a concern right now. I do not see any blood pressure medications that he was on. 3. History of hypercholesterolemia. Continue his Lipitor. 4. Vitamin D deficiency. Continue to supplement with his vitamin D 5000 units by mouth daily. Will keep him on his Sensipar, which is 60 mg by mouth every other day. 5. History of depression. He is on Cymbalta. Continue 30 mg daily. 6. Will continue his Neurontin and his hydrocodone, which he is taking for pain as needed. 7. I believe he has had some iron infusions in the past. His hematocrit looks good at 36, hemoglobin 11.2, with an MCV of 73. His electrolytes are unremarkable. Sodium 138, potassium 3.8, chloride 96, BUN 56. We will admit him to observation, and see if we can give him a little bit of fluid back to correct his hypotension. cc: Chao Lee MD
[2019-09-03] MEDS ORDERED: COLACE PO PRN (09:21)
[2019-09-03] MEDS ORDERED: TYLENOL PO PRN (09:21)
[2019-09-03] MEDS ORDERED: ZOFRAN IV PRN (09:21)
[2019-09-03] MEDS ORDERED: REQUIP PO SCH ×2 (09:21→21:00)
[2019-09-03] MEDS ORDERED: MIRALAX PO PRN (09:21)
[2019-09-03] MEDS ORDERED: IRON SUCROSE IV SCH (09:21)
[2019-09-03] MEDS ORDERED: NORCO-7.5 PO PRN (09:21)
[2019-09-03] MEDS ORDERED: SENSIPAR PO SCH (09:21)
[2019-09-03] MEDS: NS 1,000 ML IV SCH (10:08)
[2019-09-03] MEDS ORDERED: PHOSLO PO SCH (11:00)
[2019-09-03] MEDS: PREDNISONE PO SCH (11:14)
[2019-09-03] MEDS: VITAMIN D PO SCH (11:15)
[2019-09-03] MEDS: LIPITOR PO SCH (11:15)
[2019-09-03] MEDS: PRILOSEC PO SCH (11:18)
[2019-09-03] MEDS: CYMBALTA PO SCH (11:19)
[2019-09-03] MEDS ORDERED: HEPARIN IV PRN (15:19)
[2019-09-03] MEDS ORDERED: NS 2,000 ML MISC PRN (15:19)
[2019-09-03] MEDS: NEURONTIN PO SCH (16:44)
[2019-09-03] MEDS: PHOSLO PO SCH (17:52)
[2019-09-03] MEDS ORDERED: NEPHRO-VITE PO SCH (21:00)
--- NOTE | 2019-09-03 22:15 | NEPHROLOGY CONSULTATION ---
DATE: 09/03/2019 REASON FOR CONSULTATION: Evaluation and treatment. CONSULTING PROVIDER: FRAN Melendez. HISTORY OF PRESENT ILLNESS: Mr. Hdz is a 43-year-old white male who is well known to me. He has longstanding chronic kidney disease and was treated with peritoneal dialysis followed by renal transplant. He lost his transplant approximately 1 year ago in the context of a fulminate abdominal infection. He has been on hemodialysis since that time and is now using a left upper arm AV fistula. He began home training for next stage home hemodialysis. He has been to treatment for 1 week and 2 days. He had an episode of weakness and falling and transient loss consciousness. He was hypotensive on arrival to the emergency room with blood pressure 87/60. This improved with IV fluid resuscitation. After his IV fluid bolus, he was at his routine outpatient dry weight. Currently, he feels well though he is lying flat in the bed. No chest pain, palpitation, shortness of breath, etc. PAST MEDICAL HISTORY: As above. HOME MEDICATIONS: Include calcium acetate, vitamin D3, docusate, duloxetine, multivitamin, hydrocodone, iron sucrose, omeprazole, ondansetron, polyethylene glycol, prednisone, ropinirole, atorvastatin, cinacalcet, gabapentin. ALLERGIES: Lisinopril, erythromycin. SOCIAL HISTORY: He is . Lives with his , who is his primary caregiver and his dialysis partner. FAMILY HISTORY: Noncontributory. REVIEW OF SYSTEMS: Noncontributory. PHYSICAL EXAMINATION: Vital Signs: Blood pressure 100/65, heart rate 86, respirations 20, afebrile. General: No acute distress. Skin: Warm and dry. HEENT: Conjunctivae are pink. Neck: Neck veins are not distended. Heart: Regular with a gallop. No murmur. Lungs: Equal. No crackles or wheezes. Abdomen: Soft, nontender. Bowel sounds present. Extremities: No edema, clubbing, or cyanosis. IMPRESSION: 1. Hypotension. Likely intravascular volume depletion. He seems to be improved with volume resuscitation. His home medication list includes no antihypertensive medications. No evidence of sepsis. No fever, no white count. If he is stable in the morning okay for discharge. cc: MD Chao Milian MD
[2019-09-04] MEDS: NS 1,000 ML IV SCH ×3 (04:31→10:58)
[2019-09-04] MEDS: PRILOSEC PO SCH ×2 (05:56→06:56)
[2019-09-04 06:55] LABS: BASO# 0.02 X1000 (0.0-0.2); BASO% 0.3 % (0.0-0.8); EOS# 0.36 X1000 (0.0-0.7); EOS% 6.2 % (0.0-10.0); HEMATOCRIT 30.6 % (42.0-52.0); HEMOGLOBIN 8.9 g/dL (14.0-18.0); LYMPH# 0.81 X1000 (1.2-3.4); LYMPH% 13.9 % (20.5-51.1); MCH 22.1 PG (27-31); MCHC 29.1 g/dL (33-37); MCV 75.9 FL (81-99); MONO% 15.4 % (1.7-9.3); NEUT# 3.75 X1000 (1.4-6.5); NEUT% 64.2 % (42.2-75.2); PLT 217 X1000 (130-400); RBC 4.03 XMIL (4.7-6.1); RDW 22.7 % (11.5-14.5); WBC 5.84 X1000 (4.8-10.8)
[2019-09-04 07:35] LABS: CALCIUM 8.3 mg/dL (8.8-10.2); POTASSIUM 3.8 mmol/L (3.5-5.1)
[2019-09-04 07:42] LABS: CREATININE 6.4 mg/dL (0.7-1.2)
[2019-09-04] MEDS: PHOSLO PO SCH ×2 (08:23→14:31)
[2019-09-04] MEDS: LIPITOR PO SCH (08:23)
[2019-09-04] MEDS: VITAMIN D PO SCH (08:23)
[2019-09-04] MEDS: PREDNISONE PO SCH (08:24)
[2019-09-04] MEDS: NEURONTIN PO SCH (08:24)
[2019-09-04] MEDS: CYMBALTA PO SCH (08:27)
[2019-09-04 09:00] VITALS: BP 107/63
[2019-09-04] MEDS ORDERED: NS 2,000 ML MISC PRN (09:25)
[2019-09-04] MEDS ORDERED: HEPARIN IV PRN (09:25)
--- NOTE | 2019-09-04 12:51 | DISCHARGE SUMMARY ---
ADMISSION DATE: 09/03/2019 DISCHARGE DATE: 09/04/2019 HISTORY: He was admitted with what looked like he was volume depleted. He had just started some transitioning to home hemodialysis, and I just think his dry weight was low. We gave him back some fluids. He did very well. Dr. Verdugo evaluated him, and he did undergo his dialysis. Electrolytes look good, and we felt he could go home on 09/04/2019. He is on Lipitor 10 mg a day, calcium acetate 1334 mg p.o. daily, vitamin D 5000 units daily, Sensipar 60 mg p.o. every other day, Colace 100 mg p.o. b.i.d., Cymbalta 30 mg a day, folic acid 1 tablet at bedtime, Neurontin 300 mg daily. He takes [place] 7.5/325 1 b.i.d. p.r.n., omeprazole 40 mg a day, Zofran 8 mg p.o. q. 6 to 8 hours p.r.n., MiraLAX 17 g p.o. daily, prednisone 5 mg a day, and Ropinirole 0.5 mg at bedtime. We will discharge him home today. cc: Chao Lee MD
--- NOTE | 2019-09-04 18:13 | NEPHROLOGY PROGRESS NOTE ---
DATE: 09/04/2019 SUBJECTIVE: He is feeling better. He has been up to the bathroom and has not experienced dizziness or weakness. OBJECTIVE: Vital Signs: Blood pressure 132/91, heart rate 81, respirations 20, afebrile. General: No acute distress. Skin: Warm and dry. Neck: Neck veins are not appreciated. Heart: Regular. Lungs: Equal. No crackles. Abdomen: Soft, nontender. Bowel sounds present. Extremities: No edema, clubbing or cyanosis. IMPRESSION: 1. Hypotension. Likely intravascular volume depletion. His symptom are improved simply with volume resuscitation. Okay for discharge from my perspective. We will dialyze him before he leaves and he can restart his outpatient home training on Saturday. We will reschedule his access revision as well. Electrolytes/acid base in target. 2. Anemia. Hemoglobin dropped from 11.2 to 8.9. We will remeasure this. cc: MD Chao Milian MD
== END 2019-09-04 14:36 | disposition home or self-care (01) ==
LOC: SUPCPDRO → EDIPHOLD 05:49 → ED 05:49 → 4N 13:44
PROVIDERS: ADMIT Emergency Medicine; ATTEND Emergency Medicine